=== PATIENT | male | born 1930 | race Caucasian/White ===

== ENCOUNTER 2018-07-24 14:52 | Observation (INO) ==
--- NOTE | 2018-07-24 15:10 | Emergency Department Note ---
Disposition Clinical Impression: Confusion UTI (urinary tract infection) Qualifiers: Urinary tract infection type: site unspecified Hematuria presence: without hematuria Qualified Code(s): N39.0 - Urinary tract infection, site not specified CHF (congestive heart failure) Qualifiers: Heart failure type: unspecified Heart failure chronicity: unspecified Qualified Code(s): I50.9 - Heart failure, unspecified Hypothyroidism Qualifiers: Hypothyroidism type: unspecified Qualified Code(s): E03.9 - Hypothyroidism, unspecified Atrial fibrillation Qualifiers: Atrial fibrillation type: unspecified Qualified Code(s): I48.91 - Unspecified atrial fibrillation Disposition: Admitted As Inpatient Condition: Good Referrals: Wander Sandoval MD [Primary Care Provider] - Forms: ED Satisfaction Letter General Adult HPI - General Chief complaint: ED Altered Mental Status Stated complaint: AMS Time Seen by Provider: 07/24/18 14:56 Source: EMS Limitations: no limitations Nursing Notes Reviewed: Yes Vital Signs Reviewed: Yes - History of Present Illness HPI Narrative: Patient with previous cardiac history but history otherwise limited as he presents with EMS from home with no family present. Patient states that he has felt "punky" for the last several days. Report from EMS states that family states he has been confused. Confusion seems to be intermittent and they are concerned about medications. Do not have a current medication list at this time. The patient states that he has had the symptoms for the last 2 days. His only positive review of systems was decreased urination. He on physical exam has findings of lower extremity pitting edema +1 up through the lower calf. We will further discuss patient's condition once family arrives. Initial workup ordered. Pain Scale: 0 - Related Data Home Medications Medication Instructions Recorded Confirmed Aspirin 81 mg PO QPM 06/23/15 08/30/16 Clopidogrel [Plavix] 75 mg PO QAM 06/23/15 08/30/16 Finasteride [Proscar] 5 mg PO QPM 06/23/15 08/30/16 Levothyroxine [Synthroid] 75 mcg PO QAM 06/23/15 08/30/16 Nitroglycerin 0.4 mg SL Q5MIN 06/23/15 08/30/16 Pravastatin Sodium [Pravachol] 80 mg PO QPM 06/23/15 08/30/16 Silodosin [Rapaflo] 8 mg PO QPM 06/23/15 08/30/16 metFORMIN [Glucophage] 1,000 mg PO BID 06/23/15 08/30/16 Previous Rx's Medication Instructions Recorded Carvedilol [Coreg] 12.5 mg PO BID #60 tablet 09/04/16 Cefdinir [Omnicef] 300 mg PO Q12H #8 capsule 09/04/16 Furosemide [Lasix] 40 mg PO BID #60 tab 09/04/16 Lisinopril [Zestril] 2.5 mg PO DAILY #30 tablet 09/04/16 Omeprazole [PriLOSEC] 20 mg PO DAILY@0630 #30 capsule. 09/04/16 Rivaroxaban [Xarelto] 20 mg PO 1700 #30 tablet 09/04/16 Sennosides/Docusate Sodium [Senna 1 each PO HS #30 tablet 09/04/16 Plus] Allergies Allergy/AdvReac Type Severity Reaction Status Date / Time No Known Allergies Allergy Verified 08/30/16 14:18 Review of Systems: CONSTITUTIONAL: "Punky" No weight loss, fever, chills HEENT: Eyes: No visual changes. Ears, Nose, Throat: No hearing loss, difficulty talking or unable to swallow. SKIN: No rash or itching. CARDIOVASCULAR: No chest pain, chest pressure or chest discomfort. No palpitations or edema. RESPIRATORY: No shortness of breath, cough or sputum. GASTROINTESTINAL: No anorexia, nausea, vomiting or diarrhea. No abdominal pain or blood. GENITOURINARY: Decreased urination NEUROLOGICAL: No headache, dizziness, syncope, paralysis, ataxia, numbness or tingling in the extremities. No change in bowel or bladder control. MUSCULOSKELETAL: No muscle pain, back pain, joint pain or stiffness. Past Medical History - Past Medical History Medical history: Reports: coronary artery disease, diabetes, hyperlipidemia, hypertension, myocardial infarction, TIA Surgical history: Reports: angioplasty/stent, cholecystectomy, coronary bypass ( CABG), herniorrhaphy, pacemaker/AICD Psychiatric history: Reports: no psych history - Social History Smoking Status: Former smoker Smokeless Tobacco Status: No Alcohol use: Reports: none Drug use: Reports: none Physical Exam General: Well appearing, nontoxic, no acute distress Head: Normocephalic Atraumatic Eyes: PERRL, EOMI ENT: Airway patent, no stridor Neck: supple, no meningismus Chest: Lungs clear to auscultation bilateral Cardiac: Irregular rate and rhythm Abdomen: soft, nontender, nondistended; no guarding, rebound, or tenderness to percussion Musculoskeletal: Calves symmetric, nontender, +1 pitting edema to the lower extremities Skin: Midline sternotomy scar as well as scar to the left lower leg from likely bypass surgery. No rash, normal skin tone Neuro: Alert and Oriented to person, place, but states the date is 08; No focal deficit, CN 2-12 symmetric and intact - General Limitations: no limitations General appearance: alert, in no apparent distress Course - Reevaluation(s) Reevaluation #1: Family is at bedside. They have medication list. Patient no longer taking digoxin. Patient's Lasix was changed to 80 mg in the morning. The patient has been found more confused and it appears that he has not taken his medications for 2 days. Patient's laboratory evaluation shows concern for effusion versus pneumonia versus atelectasis in the left lower base. Patient has not had any symptoms of chest pain or shortness of breath or orthopnea. Atelectasis versus fluid overload as he has a mildly elevated BNP and lower extremity pitting edema is more likely. The patient's TSH is slightly elevated which may be explained from medication noncompliance. The patient's urine was found to be mucoid in nature. Lab was called as urinalysis was not performed but microscopy was. They state that his urine was too thick to run on the machine. The urinalysis shows many bacteria. Basic this does not happen often but more frequently from halfway patients with kidney dysfunction. At this time due to the bacteria in the urine urine will be cultured the patient will be treated empirically for UTI. This is consistent with patient's only symptom of decreased urine output. Would also explain why he is confused and not taking his medications which medication noncompliance likely explaining his other lab abnormalities and physical exam findings. Case will be discussed with the hospitalist and the patient be admitted for further evaluation and treatment. - Consultations Consultation #1: Discussed with hospitalist. Patient accepted for admission Vital Signs Temperature 98.5 F 07/24/18 14:56 Pulse Rate 100 07/24/18 14:56 Respiratory Rate 18 07/24/18 14:56 Blood Pressure 147/93 07/24/18 14:56 O2 Sat by Pulse Oximetry 97 07/24/18 14:56 Temperature 98.5 F 07/24/18 14:56 Pulse Rate 100 07/24/18 14:56 Respiratory Rate 18 07/24/18 14:56 Blood Pressure 147/93 07/24/18 14:56 O2 Sat by Pulse Oximetry 97 07/24/18 14:56 Oxygen Delivery Oxygen Delivery Room Air Medical Decision Making - Lab Data Result diagrams: 07/24/18 15:05 07/24/18 15:05 Lab Results 07/24/18 07/24/18 07/24/18 Range/Units 15:05 15:05 15:05 WBC 6.7 (4.3-11.1) K/mcL RBC 3.92 L (4.19-5.50) M/mcL Hgb 12.6 L (12.9-16.9) g/dL Hct 37.8 (37.5-50.1) % MCV 96.4 (83.0-100.0) fL MCH 32.1 (28.0-33.3) pg MCHC 33.3 (31.6-35.5) g/dL RDW 14.3 (11.5-14.5) % Plt Count 122 L (140-400) K/mcL MPV 9.9 (9.4-12.4) fL Immature Gran % 0.3 (0-4) % Seg Neutrophils % 74.8 % Lymphocytes % 12.1 % Monocytes % 9.4 % Eosinophils % 2.7 % Basophils % 0.7 % Neutrophils # 5.0 (1.6-8.9) K/mcL Lymphocytes # 0.8 (0.6-4.6) K/mcL Monocytes # 0.6 (0.0-1.3) K/mcL Eosinophils # 0.2 (0.0-0.6) K/mcL Basophils # 0.1 (0.0-0.2) K/mcL PT 15.2 H (9.4-12.1) Seconds INR 1.4 Sodium 140 (136-145) mEq/L Potassium 4.1 (3.5-5.1) mEq/L Chloride 107 (98-107) mEq/L Carbon Dioxide 24 (23-29) mEq/L BUN 31 H (8-23) mg/dL Creatinine 1.15 (0.70-1.30) mg/dL Est GFR ( Amer) > 60 (> 60) Est GFR (Non-Af Amer) > 60 (> 60) BUN/Creatinine Ratio 27 H (6-26) Glucose 156 H (70-105) mg/dL Calculated Osmolality 300 (280-300) Calcium 10.1 (8.6-10.3) mg/dL Total Bilirubin 1.3 H (0.3-1.0) mg/dL Direct Bilirubin 0.4 H (0.0-0.2) mg/dL Indirect Bilirubin 0.9 (0.0-1.2) mg/dL AST 32 (13-39) Units/L ALT 27 (7-52) Units/L Alkaline Phosphatase 132 H (34-104) Units/L Troponin I < 0.03 (< 0.04) ng/mL B-Natriuretic Peptide (Less than 100) pg/mL Serum Total Protein 6.6 (6.4-8.9) g/dL Albumin 4.4 (3.5-5.7) g/dL Globulin 2.2 L (2.4-3.5) g/dL Albumin/Globulin Ratio 2.0 (1.1-2.2) TSH 7.127 H (0.340-5.600) mcIU/mL Ur Specimen Adequacy Urine Color (Yellow) Urine Clarity (Clear) Urine Microscopic RBC (0-3) per hpf Urine Microscopic WBC (0-3) per hpf Urine Bacteria (None-Few) per hpf Urine Mucus (Few) Ur Culture Indicated? (NO) 07/24/18 07/24/18 Range/Units 15:06 16:00 WBC (4.3-11.1) K/mcL RBC (4.19-5.50) M/mcL Hgb (12.9-16.9) g/dL Hct (37.5-50.1) % MCV (83.0-100.0) fL MCH (28.0-33.3) pg MCHC (31.6-35.5) g/dL RDW (11.5-14.5) % Plt Count (140-400) K/mcL MPV (9.4-12.4) fL Immature Gran % (0-4) % Seg Neutrophils % % Lymphocytes % % Monocytes % % Eosinophils % % Basophils % % Neutrophils # (1.6-8.9) K/mcL Lymphocytes # (0.6-4.6) K/mcL Monocytes # (0.0-1.3) K/mcL Eosinophils # (0.0-0.6) K/mcL Basophils # (0.0-0.2) K/mcL PT (9.4-12.1) Seconds INR Sodium (136-145) mEq/L Potassium (3.5-5.1) mEq/L Chloride (98-107) mEq/L Carbon Dioxide (23-29) mEq/L BUN (8-23) mg/dL Creatinine (0.70-1.30) mg/dL Est GFR ( Amer) (> 60) Est GFR (Non-Af Amer) (> 60) BUN/Creatinine Ratio (6-26) Glucose (70-105) mg/dL Calculated Osmolality (280-300) Calcium (8.6-10.3) mg/dL Total Bilirubin (0.3-1.0) mg/dL Direct Bilirubin (0.0-0.2) mg/dL Indirect Bilirubin (0.0-1.2) mg/dL AST (13-39) Units/L ALT (7-52) Units/L Alkaline Phosphatase (34-104) Units/L Troponin I (< 0.04) ng/mL B-Natriuretic Peptide 338 H (Less than 100) pg/mL Serum Total Protein (6.4-8.9) g/dL Albumin (3.5-5.7) g/dL Globulin (2.4-3.5) g/dL Albumin/Globulin Ratio (1.1-2.2) TSH (0.340-5.600) mcIU/mL Ur Specimen Adequacy Mucoid Specimen A Urine Color Yellow (Yellow) Urine Clarity Clear (Clear) Urine Microscopic RBC 0-3 (0-3) per hpf Urine Microscopic WBC 5-15 H (0-3) per hpf Urine Bacteria Moderate H (None-Few) per hpf Urine Mucus Moderate H (Few) Ur Culture Indicated? NO (NO) - EKG Data EKG #1 EKG attestation: Yes I reviewed and interpreted this EKG. EKG results narrative: Muller EKG at 1458 atrial fibrillation with a heart rate of 108. QRS 117. QTC 416. Patient has no significant elevations or depressions. EKG unchanged from 08/30/16.
[2018-07-24 15:24] LABS: Basophils # 0.1 K/mcL (0.0-0.2); Basophils % 0.7 %; Eosinophils # 0.2 K/mcL (0.0-0.6); Eosinophils % 2.7 %; Hematocrit 37.8 % (37.5-50.1); Hemoglobin 12.6 g/dL (12.9-16.9); Immature Granulocytes % 0.3 % (0-4); Lymphocytes # 0.8 K/mcL (0.6-4.6); Lymphocytes % 12.1 %; Mean Corpuscular HGB Conc 33.3 g/dL (31.6-35.5); Mean Corpuscular Hemoglobin 32.1 pg (28.0-33.3); Mean Corpuscular Volume 96.4 fL (83.0-100.0); Mean Platelet Volume 9.9 fL (9.4-12.4); Monocytes # 0.6 K/mcL (0.0-1.3); Monocytes % 9.4 %; Platelet Count 122 K/mcL (140-400); Red Blood Count 3.92 M/mcL (4.19-5.50); Red Cell Distribution Width 14.3 % (11.5-14.5); Segmented Neutrophils % 74.8 %
[2018-07-24 15:31] LABS: INR 1.4; Prothrombin Time 15.2 Seconds (9.4-12.1)
[2018-07-24 15:50] LABS: Troponin I < 0.03 ng/mL (< 0.04)
[2018-07-24 15:51] LABS: Alanine Aminotransferase 27 Units/L (7-52); Albumin 4.4 g/dL (3.5-5.7); Alkaline Phosphatase 132 Units/L (34-104); Aspartate Amino Transferase 32 Units/L (13-39); BUN/Creatinine Ratio 27 (6-26); Bilirubin,Direct 0.4 mg/dL (0.0-0.2); Bilirubin,Indirect 0.9 mg/dL (0.0-1.2); Bilirubin,Total 1.3 mg/dL (0.3-1.0); Blood Urea Nitrogen 31 mg/dL (8-23); Calcium 10.1 mg/dL (8.6-10.3); Carbon Dioxide 24 mEq/L (23-29); Chloride 107 mEq/L (98-107); Globulin 2.2 g/dL (2.4-3.5); Glucose 156 mg/dL (70-105); Osmolality,Calculated 300 (280-300); Potassium 4.1 mEq/L (3.5-5.1); Sodium 140 mEq/L (136-145); Total Protein 6.6 g/dL (6.4-8.9); eGFR For Non-African Americans > 60 (> 60)
[2018-07-24 16:04] LABS: Thyroid Stimulating Hormone 7.127 mcIU/mL (0.340-5.600)
[2018-07-24 16:24] LABS: Clarity,Urine Clear (Clear); Color,Urine Yellow (Yellow); Urine Specimen Comments Mucoid Specimen
[2018-07-24 16:26] LABS: Bacteria,Urine Moderate per hpf (None-Few)
[2018-07-24 16:27] LABS: Mucus,Urine Moderate (Few); RBC,Urine 0-3 per hpf (0-3)
[2018-07-24] MEDS ORDERED: 0.9 % Sodium Chloride 500 ML IVC ONE (16:42)
[2018-07-24] MEDS ORDERED: cefTRIAXone 1,000 MG in Water for inj. (sterile) 20 ML 10 ML IVP ONE (16:42)
[2018-07-24] MEDS ORDERED: Furosemide 40 MG/4 ML VIAL IVP ONE (16:42)
[2018-07-24] MEDS ORDERED: Naloxone 0.4 MG/ML INJ IVP PRN (17:14)
[2018-07-24] MEDS ORDERED: *HR* Dextrose 50 % in Water (Syg) 50 ML SYRINGE IVP PRN (17:16)
[2018-07-24] MEDS ORDERED: D5% in Water 1,000 ML IVC PRN (17:16)
[2018-07-24] MEDS ORDERED: Dextrose Gel 15 GM/37.5 ML TUBE PO PRN ×2 (17:16)
--- NOTE | 2018-07-24 17:52 | Internal Med History&Physical ---
Date of Encounter: 07/25/18 Time of Encounter: 17:49 Internal Medicine - H&P: HPI Chief complaint: Confusion Admitted From: Home Plans for Post Hospital Care: Home History of present illness: Mr. Muller is a 88 year old male with medical history of hypothyroidism, atrial fibrillation, systolic heart failure, BPH, diabetes mellitus. The patient presents complaining of his children to the emergency room. History obtained from the family reports that he saw the patient at home today and he was not in his usual state of mind. Patient usually wakes up every day and document his blood pressure, his heart rate and his blood sugar, however when his son go to the patient's house this morning, he was confused, he was wearing his shoes the wrong way, and he was disoriented. The patient himself is able to give a history and she complains of not taking his medications for the past 2 days. He denies chest pain, he denies shortness of breath, he denies orthopnea, he denies nausea, vomiting or diarrhea. He endorsed dysuria and frequency. He reports increasing ankle swelling. He reports missing his medications for the past 2 days, at the time of review, he is alert and oriented 3. These has no speech deficits, he has no facial paralysis, his gait is normal Workup in the emergency room revealed that due to urinalysis, chest x-ray shows mild pulmonary vascular congestion without overt pulmonary edema. Head CT did not show any infarct. His vitals are currently stable. Family reports that the patient has been taking off r xarelto for Afib due to anemia from blood loss. Endoscopy in the chart done 2017 shows no hemorrhage. He is DNR/DNI Past Med Surg Social Fam HX - Past Medical History Medical history: coronary artery disease, diabetes, hyperlipidemia, hypertension , myocardial infarction, TIA Psychiatric history: no psych history - Past Surgical History Surgical History: angioplasty/stent, cholecystectomy, coronary bypass (CABG), herniorrhaphy, pacemaker/AICD - Social History Smoking Status: Former smoker Smokeless Tobacco Status: No Alcohol use: none Drug use: none - Family History Father Adopted: No Living Status: Hx Family Cardiac Disorders: Yes (heart attack) Mother Hx Family Endocrine Disorder: Yes (Diabetes) Internal Medicine - H&P: Meds Pravastatin Sodium [Pravachol] 80 mg PO QPM 06/23/15 [History] Carvedilol [Coreg] 12.5 mg PO BID #60 tablet 09/04/16 [Rx] Lisinopril [Zestril] 2.5 mg PO DAILY #30 tablet 09/04/16 [Rx] Omeprazole [PriLOSEC] 20 mg PO DAILY@0630 #30 capsule. 09/04/16 [Rx] Clopidogrel [Plavix] 75 mg PO QAM 07/24/18 [History] Ferrous Sulfate [Iron] 325 mg PO BID 07/24/18 [History] Finasteride [Proscar] 5 mg PO DAILY 07/24/18 [History] Furosemide [Lasix] 80 mg PO BID 07/24/18 [History] Glimepiride [Amaryl] 1 mg PO DAILY 07/24/18 [History] Levothyroxine [Synthroid] 75 mcg PO QAM 07/24/18 [History] Metformin HCl [Metformin HCl] 1,000 mg PO BID 07/24/18 [History] Nitroglycerin [Nitrostat] 0.4 mg SL AD PRN 07/24/18 [History] Silodosin [Rapaflo] 8 mg PO QPM 07/24/18 [History] Vitamin B Complex [B Complex] 1 each PO QPM 07/24/18 [History] 3 Allergy/AdvReac Type Severity Reaction Status Date / Time No Known Allergies Allergy Verified 07/24/18 21:53 All Systems PM: A 10-system review of systems was performed and is negative for pertinent findings except as documented above in the HPI. - Constitutional Constitutional: as per HPI - EENT Eyes: as per HPI Ears: as per HPI Nose, mouth and throat: as per HPI - Cardiovascular Cardiovascular ROS IM: as per HPI - Respiratory Respiratory: as per HPI - Gastrointestinal Gastrointestinal: as per HPI - Musculoskeletal Musculoskeletal ROS IM: as per HPI - Integumentary Integumentary IM: as per HPI - Neurological Neurological ROS: as per HPI - Hematologic/Lymphatic Hematologic/Lymphatic: as per HPI - Constitutional Vitals: Temp Pulse Resp BP Pulse Ox 98.5 F 87 16 130/89 98 07/24/18 14:56 07/24/18 17:19 07/24/18 17:19 07/24/18 17:19 07/24/18 17:19 General appearance: Present: A&O X 3, pleasant, no acute distress Exam: see below - Head Head exam: Present: atraumatic, normocephalic - Eye Eye exam: Present: PERRL, conjuntiva pink, sclera anicteric Pupils: Present: PERRL - Neck Neck exam general surgery: Present: supple, trachea midline. Absent: lymphadenopathy - Respiratory Respiratory exam: Present: CTAB. Absent: accessory muscle use, rales, rhonchi, wheezes - Cardiovascular Cardiovascular exam: Present: RRR, +S1, +S2. Absent: diastolic murmur, gallop, rubs, systolic murmur - GI/Abdominal GI/Abdominal exam: Present: normal bowel sounds, soft, no peritoneal signs. Absent: distended, tenderness - Extremities Exam Extremities exam: Present: pedal edema (Trace bilateral pitting ankle edema), warm, radial pulses palpable and symmetrical. Absent: calf tenderness, cyanotic - Neurological Exam Neurological exam: Present: alert, CN II-XII intact, oriented X3, no focal deficits. Absent: pronater drift, facial droop, speech deficit - Skin Skin exam: Present: dry (Bruising), intact Internal Med - H&P Results - Labs CBC & Chem 7: 07/24/18 15:05 07/25/18 03:25 Labs: Short CBC 07/24/18 Range/Units 15:05 WBC 6.7 (4.3-11.1) K/mcL Hgb 12.6 L (12.9-16.9) g/dL Hct 37.8 (37.5-50.1) % Plt Count 122 L (140-400) K/mcL Neutrophils # 5.0 (1.6-8.9) K/mcL BMP 07/24/18 15:05 Sodium 140 Potassium 4.1 Chloride 107 Carbon Dioxide 24 BUN 31 H Creatinine 1.15 Glucose 156 H Calcium 10.1 Cardiac Enzymes 07/24/18 Range/Units 15:05 Troponin I < 0.03 (< 0.04) ng/mL Liver Function 07/24/18 Range/Units 15:05 Total Bilirubin 1.3 H (0.3-1.0) mg/dL Direct Bilirubin 0.4 H (0.0-0.2) mg/dL AST 32 (13-39) Units/L ALT 27 (7-52) Units/L Alkaline Phosphatase 132 H (34-104) Units/L Albumin 4.4 (3.5-5.7) g/dL Urine 07/24/18 Range/Units 16:00 Urine Color Yellow (Yellow) Urine Clarity Clear (Clear) - Impressions ITS Impressions Chest X-Ray 07/24/18 15:05 IMPRESSION: 1. Left pleural effusion and underlying left basilar airspace opacity that could represent atelectasis, pneumonia, or aspiration. 2. Pulmonary vascular congestion with questionable perihilar edema. D/ / Jerry Carey MD / Jerry Carey MD Interpreting Provider: Jerry Carey MD Head CT 07/24/18 15:12 IMPRESSION: No acute intracranial abnormality. 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 D/ / 07/24/2018 16:01:32 Daniel Rangel MD [facility] Interpreting Provider: Daniel Rangel MD - Assessment and plan (1) Encephalopathy Current Visit: Yes Status: Acute Assessment and plan: Patient presented with confusion as stated by family, at time will review is oriented to time (he knows its 2018), place and person Head CT unremarkable Seems to have resolved No neurologic deficits and gait is normal Continue to monitor Fall precautions (2) CHF (congestive heart failure) Current Visit: Yes Status: Chronic Assessment and plan: Patient with known systolic CHF ejection fraction 40%. Noncompliant with Lasix in the past 2 days. Chest x-ray with pulmonary vascular congestion, no pulmonary edema, patient is not tachypneic or hypoxic. Continue Lasix at home dose, give IV daily for now, till home meds confirmed Strict I and Os Daily weight 1500cc fluid restriction Qualifiers: Heart failure type: systolic Heart failure chronicity: chronic Qualified Code(s): I50.22 - Chronic systolic (congestive) heart failure (3) UTI (urinary tract infection) Current Visit: Yes Status: Suspected Assessment and plan: Suspected, symptomatic UA noted-pyuria NO fever or leukocytosis Follow final culture Continue Rocephin 1g daily Qualifiers: Urinary tract infection type: site unspecified Hematuria presence: without hematuria Qualified Code(s): N39.0 - Urinary tract infection, site not specified (4) Atrial fibrillation Current Visit: Yes Status: Chronic Assessment and plan: HR controlled Not on anticoagulation due to history of anemia with xarelto Aspirin and Plavix Only, Continue the Same. Heart Rate Is Controlled on Current Beta Liv, Continue the Same. Qualifiers: Atrial fibrillation type: unspecified Qualified Code(s): I48.91 - Unspecified atrial fibrillation (5) Hypothyroidism Current Visit: Yes Status: Chronic Assessment and plan: Uncontrolled Compliance is questionable TSH 7.127 Continue home dose of synthroid Continue to monitor Qualifiers: Hypothyroidism type: unspecified Qualified Code(s): E03.9 - Hypothyroidism , unspecified (6) BPH (benign prostatic hyperplasia) Current Visit: Yes Status: Chronic Assessment and plan: continue home meds Qualifiers: Lower urinary tract symptom presence: unspecified whether lower urinary tract symptoms present Qualified Code(s): N40.0 - Benign prostatic hyperplasia without lower urinary tract symptoms (7) CAD (coronary artery disease) Current Visit: Yes Status: Chronic Assessment and plan: continue home BB, ACEI, ASA, Plavix, Lasix No CP EKG is unremarkable Qualifiers: Coronary Disease-Associated Artery/Lesion type: [place] artery [place] vs. transplanted heart: [place] heart Associated angina: without angina Qualified Code(s): I25.10 - Atherosclerotic heart disease of [place] coronary artery without angina pectoris (8) Diabetes Current Visit: Yes Status: Chronic Assessment and plan: SSI FS ACHS ADA diet Qualifiers: Diabetes mellitus type: type 2 Diabetes mellitus termite technician insulin use: without termite technician use Diabetes mellitus complication status: without complication Qualified Code(s): E11.9 - Type 2 diabetes mellitus without complications - Time Spent With Patient Total time spent is greater than 50% in coordination of care (as documented) at patient's floor/unit and/or counseling patient:
[2018-07-24] MEDS: Finasteride 5 MG TABLET PO SCH (18:42)
[2018-07-24] MEDS: Insulin LISPRO 300 UNITS/3 ML VIAL SQ SCH (20:45)
[2018-07-25 05:05] LABS: Alanine Aminotransferase 25 Units/L (7-52); Albumin 3.6 g/dL (3.5-5.7); Albumin/Globulin Ratio 1.6 (1.1-2.2); Alkaline Phosphatase 101 Units/L (34-104); Aspartate Amino Transferase 28 Units/L (13-39); BUN/Creatinine Ratio 25 (6-26); Bilirubin,Total 1.1 mg/dL (0.3-1.0); Blood Urea Nitrogen 26 mg/dL (8-23); Calcium 9.4 mg/dL (8.6-10.3); Carbon Dioxide 28 mEq/L (23-29); Chloride 106 mEq/L (98-107); Globulin 2.2 g/dL (2.4-3.5); Glucose 123 mg/dL (70-105); Osmolality,Calculated 298 (280-300); Potassium 3.6 mEq/L (3.5-5.1); Sodium 141 mEq/L (136-145); Total Protein 5.8 g/dL (6.4-8.9); eGFR For Non-African Americans > 60 (> 60)
[2018-07-25] MEDS: Insulin LISPRO 300 UNITS/3 ML VIAL SQ SCH ×3 (08:09→17:07)
[2018-07-25] MEDS: cefTRIAXone 1,000 MG in Water for inj. (sterile) 20 ML 10 ML IVP SCH (08:42)
[2018-07-25] MEDS ORDERED: Furosemide 40 MG/4 ML VIAL IVP SCH (09:00)
--- NOTE | 2018-07-25 11:07 | Internal Med Progress Note ---
Hospitalist Progress Note - Encounter Date of Encounter: 07/25/18 Time of Encounter: 11:07 - Subjective Interval History: Patient seen laying flat in bed, has no new complains He remembers this provider 'from yesterday, and from 2 years ago" He is concerned he has not received many of his medications this a.m, chart review shows he has received them He is comfortable - Exam Vitals: Temp Pulse Resp BP Pulse Ox 98.2 F 90 16 100/56 93 07/25/18 08:02 07/25/18 08:02 07/25/18 08:02 07/25/18 08:02 07/25/18 08:02 Exam: Gen.: Vital signs are stable, laying in bed in no form of distress. HEENT: Moist oral mucosa, not cyanotic, sclerae is anicteric, conjunctiva is pink. Neuro: Alert and awake and oriented X2 , disoriented to time, speech is normal, no facial paralysis, no focal weakness. Chest: No bruising, no chest wall tenderness, equal chest movement bilaterally. Respiratory: CTAB Heart: S1, S2, regular rate and rhythm at this time. No murmurs. Abdomen: Obese, nontender, no palpably enlarged organs, bowel sounds present in all quadrants. Extremities: Trace bilateral pitting pedal edema. - Assessment and Plan (1) Encephalopathy Current Visit: Yes Status: Resolved Assessment and Plan: Patient presented with confusion as stated by family, at time of review 07/24, he was oriented X3 This a.m, he is oriented X3, stated its 2008, then changed it to [address] unremarkable Seems to have resolved No neurologic deficits and gait is normal Continue to monitor (2) CHF (congestive heart failure) Current Visit: Yes Status: Chronic Assessment and Plan: Patient with known systolic CHF ejection fraction 40%. Noncompliant with Lasix in the past 2 days. Chest x-ray with pulmonary vascular congestion, no pulmonary edema, patient is not tachypneic or hypoxic. Continue Lasix at home dose, give IV daily for now, till home meds confirmed Strict I and Os Daily weight 1500cc fluid restriction (3) UTI (urinary tract infection) Current Visit: Yes Status: Suspected Assessment and Plan: Suspected, symptomatic UA noted-pyuria NO fever or leukocytosis Follow final culture Continue Rocephin 1g daily (4) Atrial fibrillation Current Visit: Yes Status: Chronic Assessment and Plan: HR controlled Not on anticoagulation due to history of anemia with xarelto He is on Plavix Only, Continue the Same. Heart Rate Is Controlled on Current Beta Liv, Continue the Same. (5) Hypothyroidism Current Visit: Yes Status: Chronic Assessment and Plan: Uncontrolled Compliance is questionable TSH 7.127 Continue home dose of synthroid Continue to monitor (6) BPH (benign prostatic hyperplasia) Current Visit: Yes Status: Chronic Assessment and Plan: continue home meds (7) CAD (coronary artery disease) Current Visit: Yes Status: Chronic Assessment and Plan: continue home BB, ACEI, Plavix, Lasix No CP EKG is unremarkable (8) Diabetes Current Visit: Yes Status: Chronic Assessment and Plan: SSI FS ACHS ADA diet - Time Spent with Patient Total time spent is greater than 50% in coordination of care (as documented) at patient's floor/unit and/or counseling patient: Plan of Care Discussed with: patient Internal Medicine: Result - Labs CBC & Chem 7: 07/24/18 15:05 07/25/18 03:25 Labs: BMP 07/25/18 03:25 Sodium 141 Potassium 3.6 Chloride 106 Carbon Dioxide 28 BUN 26 H Creatinine 1.06 Glucose 123 H Calcium 9.4 Liver Function 07/25/18 Range/Units 03:25 Total Bilirubin 1.1 H (0.3-1.0) mg/dL AST 28 (13-39) Units/L ALT 25 (7-52) Units/L Alkaline Phosphatase 101 (34-104) Units/L Albumin 3.6 (3.5-5.7) g/dL - ABG Interpretation ABG results: PT/INR, D-dimer PT 15.2 Seconds (9.4-12.1) H 07/24/18 15:05 Consult Discharge Plan - Plan Referrals: Wander Sandoval MD [Primary Care Provider] - (Requested a follow up visit in 7- 10 days. ) (2) CHF (congestive heart failure) Qualifiers: Heart failure type: systolic Heart failure chronicity: chronic Qualified Code(s): I50.22 - Chronic systolic (congestive) heart failure (3) UTI (urinary tract infection) Qualifiers: Urinary tract infection type: site unspecified Hematuria presence: without hematuria Qualified Code(s): N39.0 - Urinary tract infection, site not specified (4) Atrial fibrillation Qualifiers: Atrial fibrillation type: unspecified Qualified Code(s): I48.91 - Unspecified atrial fibrillation (5) Hypothyroidism Qualifiers: Hypothyroidism type: unspecified Qualified Code(s): E03.9 - Hypothyroidism, unspecified (6) BPH (benign prostatic hyperplasia) Qualifiers: Lower urinary tract symptom presence: unspecified whether lower urinary tract symptoms present Qualified Code(s): N40.0 - Benign prostatic hyperplasia without lower urinary tract symptoms (7) CAD (coronary artery disease) Qualifiers: Coronary Disease-Associated Artery/Lesion type: [place] artery [place] vs. transplanted heart: [place] heart Associated angina: without angina Qualified Code(s): I25.10 - Atherosclerotic heart disease of [place] coronary artery without angina pectoris (8) Diabetes Qualifiers: Diabetes mellitus type: type 2 Diabetes mellitus escort patients insulin use: without nursing home use Diabetes mellitus complication status: without complication Qualified Code(s): E11.9 - Type 2 diabetes mellitus without complications
[2018-07-25] MEDS: Finasteride 5 MG TABLET PO SCH (17:50)
[2018-07-25] MEDS: Vitamin B Complex/Vit C/Vit E 1 EACH TABLET PO SCH (17:50)
[2018-07-25] MEDS: Furosemide 40 MG/4 ML VIAL IVP SCH (17:50)
[2018-07-25] MEDS: (Silodosin [Rapaflo] 8 MG) PO SCH (17:59)
[2018-07-26] MEDS: Insulin LISPRO 300 UNITS/3 ML VIAL SQ SCH ×5 (00:16→22:01)
[2018-07-26 07:33] LABS: Immature Granulocytes % 0.2 % (0-4)
[2018-07-26 07:35] LABS: Basophils % 0.8 %; Eosinophils # 0.2 K/mcL (0.0-0.6); Eosinophils % 3.8 %; Hematocrit 34.9 % (37.5-50.1); Hemoglobin 11.5 g/dL (12.9-16.9); Immature Platelets 3.3 % (1.1-6.1); Lymphocytes # 0.6 K/mcL (0.6-4.6); Lymphocytes % 12.3 %; Mean Corpuscular Hemoglobin 31.6 pg (28.0-33.3); Mean Corpuscular Volume 95.9 fL (83.0-100.0); Mean Platelet Volume 9.5 fL (9.4-12.4); Monocytes # 0.4 K/mcL (0.0-1.3); Monocytes % 8.7 %; Neutrophils # 3.8 K/mcL (1.6-8.9); Red Blood Count 3.64 M/mcL (4.19-5.50); Red Cell Distribution Width 14.1 % (11.5-14.5); Segmented Neutrophils % 74.2 %
[2018-07-26 07:56] LABS: BUN/Creatinine Ratio 21 (6-26); Blood Urea Nitrogen 23 mg/dL (8-23); Calcium 9.3 mg/dL (8.6-10.3); Carbon Dioxide 27 mEq/L (23-29); Chloride 108 mEq/L (98-107); Glucose 152 mg/dL (70-105); Osmolality,Calculated 303 (280-300); Potassium 3.5 mEq/L (3.5-5.1); Sodium 143 mEq/L (136-145); eGFR For Non-African Americans > 60 (> 60)
[2018-07-26 08:39] LABS: Platelet Count 97 K/mcL (140-400)
[2018-07-26] MEDS: cefTRIAXone 1,000 MG in Water for inj. (sterile) 20 ML 10 ML IVP SCH (09:13)
[2018-07-26] MEDS: Furosemide 40 MG/4 ML VIAL IVP SCH ×2 (09:16→17:32)
[2018-07-26 10:41] LABS: Estimated Average Glucose 134 mg/dl; Hemoglobin A1C 6.3 %
--- NOTE | 2018-07-26 10:59 | Internal Med Progress Note ---
Hospitalist Progress Note - Encounter Date of Encounter: 07/26/18 Time of Encounter: 10:59 - Subjective Interval History: Patient seen laying flat in bed, has no new complains We are awaiting urine culture He has no new complains His repeat CXR shows stable pulm vascular congestion He is able to lay flat and has no O2 requirement Will request PTOT eval - Exam Vitals: Temp Pulse Resp BP Pulse Ox 98.0 F 91 16 131/84 94 07/26/18 08:13 07/26/18 08:13 07/26/18 08:13 07/26/18 08:13 07/26/18 08:13 Exam: Gen.: Vital signs are stable, laying in bed in no form of distress. HEENT: Moist oral mucosa, not cyanotic, sclerae is anicteric, conjunctiva is pink. Neuro: Alert and awake and oriented X2 , disoriented to time, speech is normal, no facial paralysis, no focal weakness. Chest: No bruising, no chest wall tenderness, equal chest movement bilaterally. Respiratory: CTAB Heart: S1, S2, regular rate and rhythm at this time. No murmurs. Abdomen: soft non-tender, no palpably enlarged organs, bowel sounds present in all quadrants. Extremities: no pitting pedal edema. - Assessment and Plan (1) Encephalopathy Current Visit: Yes Status: Resolved Assessment and Plan: Patient presented with confusion as stated by family, at time of review 07/24, he was oriented X3 This a.m, he is oriented X3, stated its 2008, then changed it to [address] unremarkable Seems to have resolved No neurologic deficits and gait is normal Continue to monitor (2) CHF (congestive heart failure) Current Visit: Yes Status: Chronic Assessment and Plan: Patient with known systolic CHF ejection fraction 40%. Noncompliant with Lasix in the past 2 days. Chest x-ray with pulmonary vascular congestion, no pulmonary edema, patient is not tachypneic or hypoxic. Continue Lasix Resume home dose po a.m Repeat CXR stable Strict I and Os Daily weight 1500cc fluid restriction (3) UTI (urinary tract infection) Current Visit: Yes Status: Suspected Assessment and Plan: Suspected, symptomatic UA noted-pyuria NO fever or leukocytosis Follow final culture Continue Rocephin 1g daily (4) Atrial fibrillation Current Visit: Yes Status: Chronic Assessment and Plan: HR controlled Not on anticoagulation due to history of anemia with xarelto He is on Plavix Only, Continue the Same. Heart Rate Is Controlled on Current Beta Liv, Continue the Same. (5) Hypothyroidism Current Visit: Yes Status: Chronic Assessment and Plan: Uncontrolled Compliance is questionable TSH 7.127 Continue home dose of synthroid Continue to monitor (6) BPH (benign prostatic hyperplasia) Current Visit: Yes Status: Chronic Assessment and Plan: continue home meds (7) CAD (coronary artery disease) Current Visit: Yes Status: Chronic Assessment and Plan: continue home BB, ACEI, Plavix, Lasix No CP EKG is unremarkable (8) Diabetes Current Visit: Yes Status: Chronic Assessment and Plan: SSI FS ACHS ADA diet - Time Spent with Patient Total time spent is greater than 50% in coordination of care (as documented) at patient's floor/unit and/or counseling patient: Plan of Care Discussed with: patient Internal Medicine: Result - Labs CBC & Chem 7: 07/26/18 06:44 07/26/18 06:44 Labs: Short CBC 07/26/18 Range/Units 06:44 WBC 5.1 (4.3-11.1) K/mcL Hgb 11.5 L (12.9-16.9) g/dL Hct 34.9 L (37.5-50.1) % Plt Count 97 L (140-400) K/mcL Neutrophils # 3.8 (1.6-8.9) K/mcL BMP 07/26/18 06:44 Sodium 143 Potassium 3.5 Chloride 108 H Carbon Dioxide 27 BUN 23 Creatinine 1.12 Glucose 152 H Calcium 9.3 - ABG Interpretation ABG results: PT/INR, D-dimer PT 15.2 Seconds (9.4-12.1) H 07/24/18 15:05 - Impressions Impressions Chest X-Ray 07/26/18 08:00 IMPRESSION: Pulmonary edema and small left pleural effusion, stable from prior study. D/ / Michael Staley MD / Michael Staley MD Interpreting Provider: Michael Staley MD Consult Discharge Plan - Plan Referrals: Wander Sandoval MD [Primary Care Provider] - (Requested a follow up visit in 7- 10 days. ) (2) CHF (congestive heart failure) Qualifiers: Heart failure type: systolic Heart failure chronicity: chronic Qualified Code(s): I50.22 - Chronic systolic (congestive) heart failure (3) UTI (urinary tract infection) Qualifiers: Urinary tract infection type: site unspecified Hematuria presence: without hematuria Qualified Code(s): N39.0 - Urinary tract infection, site not specified (4) Atrial fibrillation Qualifiers: Atrial fibrillation type: unspecified Qualified Code(s): I48.91 - Unspecified atrial fibrillation (5) Hypothyroidism Qualifiers: Hypothyroidism type: unspecified Qualified Code(s): E03.9 - Hypothyroidism, unspecified (6) BPH (benign prostatic hyperplasia) Qualifiers: Lower urinary tract symptom presence: unspecified whether lower urinary tract symptoms present Qualified Code(s): N40.0 - Benign prostatic hyperplasia without lower urinary tract symptoms (7) CAD (coronary artery disease) Qualifiers: Coronary Disease-Associated Artery/Lesion type: [place] artery [place] vs. transplanted heart: [place] heart Associated angina: without angina Qualified Code(s): I25.10 - Atherosclerotic heart disease of [place] coronary artery without angina pectoris (8) Diabetes Qualifiers: Diabetes mellitus type: type 2 Diabetes mellitus intermediate card tender insulin use: without care home use Diabetes mellitus complication status: without complication Qualified Code(s): E11.9 - Type 2 diabetes mellitus without complications
[2018-07-26] MEDS: (Silodosin [Rapaflo] 8 MG) PO SCH (17:32)
[2018-07-26] MEDS: Finasteride 5 MG TABLET PO SCH (17:32)
[2018-07-26] MEDS: Vitamin B Complex/Vit C/Vit E 1 EACH TABLET PO SCH (18:17)
[2018-07-27] MEDS ORDERED: Furosemide 40 MG TABLET PO SCH (08:00)
[2018-07-27] MEDS: cefTRIAXone 1,000 MG in Water for inj. (sterile) 20 ML 10 ML IVP SCH (08:07)
[2018-07-27] MEDS: Insulin LISPRO 300 UNITS/3 ML VIAL SQ SCH ×2 (08:11→12:22)
--- NOTE | 2018-07-27 10:41 | Discharge Summary ---
Orders not resulted at time of discharge: Pending orders 07/25/18 12:13 Culture,Urine [RM] Stat Date of Encounter: 07/27/18 Time of Encounter: 10:41 - Discharge Diagnosis (1) Encephalopathy Priority: Primary Status: Resolved Assessment and Plan: Patient presented with confusion as stated by family, at time of review 07/24, he was oriented X3 This a.m, he is oriented X3 Head CT unremarkable No neurologic deficits and gait is normal PTOT recommends 24 hr supervision Patient may be having early signs of dementia (2) CHF (congestive heart failure) Priority: Secondary Status: Chronic Assessment and Plan: Patient with known systolic CHF ejection fraction 40%. Noncompliant with Lasix in the past 2 days. Chest x-ray with pulmonary vascular congestion, no pulmonary edema, patient is not tachypneic or hypoxic. Continue Lasix Weight loss documented in-patient, inaccurate output documentation Qualifiers: Heart failure type: systolic Heart failure chronicity: chronic Qualified Code(s): I50.22 - Chronic systolic (congestive) heart failure (3) UTI (urinary tract infection) Priority: Primary Status: Ruled-out Assessment and Plan: ruled out Discontinue antibiotics as urine culture is negative Qualifiers: Urinary tract infection type: site unspecified Hematuria presence: without hematuria Qualified Code(s): N39.0 - Urinary tract infection, site not specified (4) Atrial fibrillation Priority: Secondary Status: Chronic Assessment and Plan: HR controlled Not on anticoagulation due to history of anemia with xarelto He is on Plavix Only, Continue the Same. Qualifiers: Atrial fibrillation type: unspecified Qualified Code(s): I48.91 - Unspecified atrial fibrillation (5) Hypothyroidism Priority: Secondary Status: Chronic Assessment and Plan: Uncontrolled Compliance is questionable TSH 7.127 Continue home dose of synthroid Follow up with PCP for repeat TSH in 3 months Qualifiers: Hypothyroidism type: unspecified Qualified Code(s): E03.9 - Hypothyroidism , unspecified (6) BPH (benign prostatic hyperplasia) Priority: Secondary Status: Chronic Assessment and Plan: continue home meds Qualifiers: Lower urinary tract symptom presence: unspecified whether lower urinary tract symptoms present Qualified Code(s): N40.0 - Benign prostatic hyperplasia without lower urinary tract symptoms (7) CAD (coronary artery disease) Priority: Secondary Status: Chronic Assessment and Plan: continue home BB, ACEI, Plavix, Lasix No CP EKG is unremarkable Qualifiers: Coronary Disease-Associated Artery/Lesion type: [place] artery [place] vs. transplanted heart: [place] heart Associated angina: without angina Qualified Code(s): I25.10 - Atherosclerotic heart disease of [place] coronary artery without angina pectoris (8) Diabetes Priority: Secondary Status: Chronic Assessment and Plan: continue home po meds A1C 6.3, no hypoglycemia, renal function is stable Qualifiers: Diabetes mellitus type: type 2 Diabetes mellitus terminal make up operator insulin use: without terminal make up operator use Diabetes mellitus complication status: without complication Qualified Code(s): E11.9 - Type 2 diabetes mellitus without complications Hospital course: Mr. Muller is a 88 year old male with medical history of hypothyroidism, atrial fibrillation, systolic heart failure, BPH, diabetes mellitus. He presented in completely history and complaining of disorientation, and confusion. According to the family, the patient was found at home and he was not in his usual state of mind. Patient usually wakes up every day and document his blood pressure, his heart rate and his blood sugar, however when his son go to the patient's house on their arrival, he was confused, he was wearing his shoes the wrong way, and he was disoriented. Workup in the emergency room showed 13 urinalysis, chest x-ray showed stable pulmonary vascular congestion without overt pulmonary edema, head CT was unremarkable. TSH was elevated at 7. His vital signs were stable. He was placed on observation for encephalopathy likely secondary to urinary tract infection, home medications were resumed. He was placed on empiric antibiotics and home medications were resumed. The patient was seen and evaluated this morning, he is alert and oriented 3, he is not confused. Urine culture yielded no growth. Physical and occupational therapy were consulted due to family is concerned, patient Jairo 11. PT and OT recommends home health for 24-hour supervision. At this time, there has been no change to patient's home medications, he is ambulatory and conversant, however, he may be developing signs of dementia at this time. Patient's daughter said she is moving in with him and will be with him for a week. She declined home health offered by . See individual diagnoses for more details He is DNR/DNI. Discharged home in stable clinical condition Discharge discussed with: patient, case management - Time Spent with Patient Total time spent providing and/or coordinating discharge services: Less than 30 minutes - Discharge Medications Home Medications: Pravastatin Sodium [Pravachol] 80 mg PO QPM 06/23/15 [History] Carvedilol [Coreg] 12.5 mg PO BID #60 tablet 09/04/16 [Rx] Lisinopril [Zestril] 2.5 mg PO DAILY #30 tablet 09/04/16 [Rx] Omeprazole [PriLOSEC] 20 mg PO DAILY@0630 #30 capsule. 09/04/16 [Rx] Clopidogrel [Plavix] 75 mg PO QAM 07/24/18 [History] Ferrous Sulfate [Iron] 325 mg PO BID 07/24/18 [History] Finasteride [Proscar] 5 mg PO DAILY 07/24/18 [History] Furosemide [Lasix] 80 mg PO BID 07/24/18 [History] Glimepiride [Amaryl] 1 mg PO DAILY 07/24/18 [History] Levothyroxine [Synthroid] 75 mcg PO QAM 07/24/18 [History] Metformin HCl 1,000 mg PO BID 07/24/18 [History] Nitroglycerin [Nitrostat] 0.4 mg SL AD PRN 07/24/18 [History] Silodosin [Rapaflo] 8 mg PO QPM 07/24/18 [History] Vitamin B Complex [B Complex] 1 each PO QPM 07/24/18 [History] Allergies/Adverse Reactions: 3 Allergy/AdvReac Type Severity Reaction Status Date / Time No Known Allergies Allergy Verified 07/24/18 21:53 Date of admission: 07/24/18 17:08 Primary care physician: Wander Sandoval MD Consults: 07/24/18 19:08 Consult to Marketing Writer [CONS] Routine Reason for SW Consult: possible need for home health 07/26/18 12:13 Consult to Occupational Therapy [CONS] Routine Comment: Evaluate, develop and implement POC Reason for Consult: Weakness Does patient have active BEDREST order?: No Is patient medically & hemodynamically stable?: Yes Consult to Physical Therapy [CONS] Routine Comment: Evaluate, develop and implement POC Reason for Consult: Weakness Does patient have active BEDREST order?: No Is patient medically & hemodynamically stable?: Yes Discharging clinician: Gomez Jaeger Anticipated date of discharge: 07/27/18 - Constitutional Vitals: Temp Pulse Resp BP Pulse Ox 98.0 F 88 15 134/87 96 07/27/18 06:33 07/27/18 06:33 07/27/18 06:33 07/27/18 06:07/27/18 06:33 General appearance: Present: A&O X 3, pleasant, no acute distress Exam: see below - Head Head exam: Present: atraumatic, normocephalic - Eye Eye exam: Present: PERRL, conjuntiva pink, sclera anicteric Pupils: Present: PERRL - Neck Neck exam general surgery: Present: supple, trachea midline. Absent: lymphadenopathy - Respiratory Respiratory exam: Present: CTAB. Absent: accessory muscle use, rales, rhonchi, wheezes - Cardiovascular Cardiovascular exam: Present: RRR, +S1, +S2. Absent: diastolic murmur, gallop, rubs, systolic murmur - GI/Abdominal GI/Abdominal exam: Present: normal bowel sounds, soft, no peritoneal signs. Absent: distended, tenderness - Extremities Exam Extremities exam: Present: warm, radial pulses palpable and symmetrical. Absent : calf tenderness, cyanotic, pedal edema - Neurological Exam Neurological exam: Present: CN II-XII intact, oriented X3, no focal deficits. Absent: pronater drift, facial droop, speech deficit - Skin Skin exam: Present: dry, intact - Patient Status Disposition: Home Health Service Condition: Good Functional capacity at discharge: independent ambulation Overall status at discharge: patient is progressing back to baseline - Discharge Instructions Follow Up With: Wander Sandoval MD [Primary Care Provider] - (Requested a follow up visit in 7- 10 days. ) - Diet and Activity Activity: resume usual activities as tolerated Diet: low fat, low cholesterol, low salt diet
--- NOTE | 2018-07-27 11:21 | Physician Discharge Referral ---
Home Health/Hosp Referral Info Transfer to: Home Health Attending Provider: Booker Jaeger Provider in Charge Post Discharge: PCP - Diagnosis (1) Encephalopathy Status: Resolved (2) CHF (congestive heart failure) Status: Chronic (3) UTI (urinary tract infection) Status: Suspected (4) Atrial fibrillation Status: Chronic (5) Hypothyroidism Status: Chronic (6) BPH (benign prostatic hyperplasia) Status: Chronic (7) CAD (coronary artery disease) Status: Chronic (8) Diabetes Status: Chronic - Respiratory Orders Smoking Cessation: Smoking cessation has been advised. For more information, call the [place] Tobacco Quit Line at 2-652-VJVB-NOW. - Transfer Medications Home Medications: Pravastatin Sodium [Pravachol] 80 mg PO QPM 06/23/15 [History] Carvedilol [Coreg] 12.5 mg PO BID #60 tablet 09/04/16 [Rx] Lisinopril [Zestril] 2.5 mg PO DAILY #30 tablet 09/04/16 [Rx] Omeprazole [PriLOSEC] 20 mg PO DAILY@0630 #30 capsule. 09/04/16 [Rx] Clopidogrel [Plavix] 75 mg PO QAM 07/24/18 [History] Ferrous Sulfate [Iron] 325 mg PO BID 07/24/18 [History] Finasteride [Proscar] 5 mg PO DAILY 07/24/18 [History] Furosemide [Lasix] 80 mg PO BID 07/24/18 [History] Glimepiride [Amaryl] 1 mg PO DAILY 07/24/18 [History] Levothyroxine [Synthroid] 75 mcg PO QAM 07/24/18 [History] Metformin HCl [Metformin HCl] 1,000 mg PO BID 07/24/18 [History] Nitroglycerin [Nitrostat] 0.4 mg SL AD PRN 07/24/18 [History] Silodosin [Rapaflo] 8 mg PO QPM 07/24/18 [History] Vitamin B Complex [B Complex] 1 each PO QPM 07/24/18 [History] Allergies/Adverse Reactions: 3 Allergy/AdvReac Type Severity Reaction Status Date / Time No Known Allergies Allergy Verified 07/24/18 21:53 Certification: Further, I certify that my clinical findings support that this patient is homebound (i.e. absences from home require considerable and taxing effort and are for medical reasons or mandaen services or infrequently or short duration when for other reasons) because: Attestation: My signature below is to certify that this patient is under my care and that I, or nurse practitioner, or a physician's blood bank assistant working with me, has a face-to -face encounter with this patient.
[2018-07-27 11:36] VITALS: BP 124/78
--- NOTE | 2018-07-27 17:57 | Electrocardiograph Report ---
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
== END 2018-07-27 19:42 | disposition home or self-care (01) ==
LOC: 3BNU 14:52 → EMEROOARM 14:52 → SUATTDRO 17:08 → 3BNU 18:34 → UNDODISOB 07-27 16:53
PROVIDERS: ADMIT Internal Medicine; ATTEND Internal Medicine

== ENCOUNTER 2019-07-27 09:17 | Observation (INO) ==
--- NOTE | 2019-07-27 09:26 | Emergency Department Note ---
Disposition Clinical Impression: Cerebrovascular disease, Weakness, Frail elderly, History of hypertension, History of hyperlipidemia CAD (coronary artery disease) Qualifiers: Coronary Disease-Associated Artery/Lesion type: [place] artery [place] vs. transplanted heart: [place] heart Associated angina: without angina Qualified Code(s): I25.10 - Atherosclerotic heart disease of [place] coronary artery without angina pectoris Diabetes Qualifiers: Diabetes mellitus type: type 2 Diabetes mellitus assisted insulin use: without program instructor use Diabetes mellitus complication status: without complication Qual ified Code(s): E11.9 - Type 2 diabetes mellitus without complications Atrial fibrillation Qualifiers: Atrial fibrillation type: unspecified Qualified Code(s): I48.91 - Unspecified atrial fibrillation Disposition: Admitted As Inpatient Time of Disposition: 14:39 General Adult HPI - General Chief complaint: ED General Medical Stated complaint: dizzy Time Seen by Provider: 07/27/19 09:21 - History of Present Illness HPI Narrative: 89-year-old male brought in by family members with concern regarding generalized weakness. The patient's daughter checked on him this morning when she heard some noise coming from the bathroom, the patient was sitting on the toilet and attempting to get up and was unable to stand normally. He felt weak and dizzy. There is no history of slurred speech facial drooping unilateral arm or leg weakness or numbness or fall. The patient denies any chest pain shortness of breah or abdominal pain. No acute back pain. No vomiting diarrhea fever confusion or convulsion. The patient is known to be diabetic. The patient's was doing well last night and had a good meal per his family. They state he has felt generally weak which began this morning. No fever or headache or rash reported. No urinary symptoms noted. - Related Data Home Medications Medication Instructions Recorded Confirmed Pravastatin Sodium [Pravachol] 80 mg PO QPM 06/23/15 07/27/19 Clopidogrel [Plavix] 75 mg PO QAM 07/24/18 07/27/19 Ferrous Sulfate [Iron] 325 mg PO BID 07/24/18 07/27/19 Finasteride [Proscar] 5 mg PO DAILY 07/24/18 07/27/19 Furosemide [Lasix] 80 mg PO BID 07/24/18 07/27/19 Glimepiride [Amaryl] 1 mg PO DAILY 07/24/18 07/27/19 Levothyroxine [Synthroid] 75 mcg PO QAM 07/24/18 07/27/19 Metformin HCl 1,000 mg PO BID 07/24/18 07/27/19 Nitroglycerin [Nitrostat] 0.4 mg SL AD PRN 07/24/18 07/27/19 Silodosin [Rapaflo] 8 mg PO QPM 07/24/18 07/27/19 Vitamin B Complex [B Complex] 1 each PO QPM 07/24/18 07/27/19 Previous Rx's Medication Instructions Recorded Carvedilol [Coreg] 12.5 mg PO BID #60 tablet 09/04/16 Lisinopril [Zestril] 2.5 mg PO DAILY #30 tablet 09/04/16 Omeprazole [PriLOSEC] 20 mg PO DAILY@0630 #30 capsule. 09/04/16 Allergies Allergy/AdvReac Type Severity Reaction Status Date / Time No Known Allergies Allergy Verified 07/24/18 21:53 All systems ED: reviewed and negative except as stated. Past Medical History - Past Medical History Medical history: Reports: coronary artery disease, diabetes, hyperlipidemia, hypertension, myocardial infarction, TIA Surgical history: Reports: angioplasty/stent, cholecystectomy, coronary bypass (CABG), herniorrhaphy, pacemaker/AICD Psychiatric history: Reports: no psych history - Social History Smoking Status: Former smoker Smokeless Tobacco Status: No Alcohol use: Reports: none Drug use: Reports: none Physical Exam - General Limitations: no limitations General appearance: alert, in no apparent distress - Head Head exam: atraumatic, normocephalic, normal inspection - Eye Eye exam: Present: normal appearance, PERRL, EOMI - ENT ENT exam: normal exam, normal oropharynx, mucous membranes moist, TM's normal bilaterally, normal external ear exam - Neck Neck exam: Present: normal inspection, full ROM, trachea midline - Chest Chest inspection: Present: symmetric chest wall rise. Absent: tenderness - Respiratory Respiratory exam: Present: normal lung sounds bilaterally. Absent: respiratory distress, prolonged expiratory phase - Cardiovascular Cardiovascular exam: Present: regular rate, irregular rhythm - Abdominal Exam Abdominal exam: Present: soft, Non-Tender, normal bowel sounds. Absent: tenderness, distention, guarding, rebound, rigidity - Extremities Exam Extremities exam: Present: normal inspection, full ROM, normal capillary refill. Absent: tenderness, pedal edema, joint swelling - Expanded Lower Extremity Exam Neurovascular/Tendon exam: Present: normal capillary refill. Absent: motor deficit, sensory deficit, tendon deficit, extremity cold to touch, pallor - Back Exam Back exam: Present: normal inspection, full ROM. Absent: tenderness, CVA tenderness (R), CVA tenderness (L), vertebral tenderness - Neurological Exam Neurological exam: Present: alert, oriented X3, CN II-XII intact. Absent: motor sensory deficit - Psychiatric Psychiatric exam: Present: normal affect, normal mood - Skin Skin exam: Present: warm, dry, intact, normal color Course Vital Signs Temperature 98 F 07/27/19 09:23 Pulse Rate 80 07/27/19 09:23 Respiratory Rate 15 07/27/19 09:23 Blood Pressure 150/76 07/27/19 09:23 O2 Sat by Pulse Oximetry 95 07/27/19 09:23 Temperature 98.1 F 07/27/19 19:10 Pulse Rate 71 07/27/19 19:10 Respiratory Rate 17 07/27/19 19:10 Blood Pressure 138/81 07/27/19 19:10 O2 Sat by Pulse Oximetry 96 07/27/19 19:10 Oxygen Delivery Oxygen Delivery Room Air Medical Decision Making - [facility] Narrative Medical decision making narrative: The patient had an episode today where he was unable to stand normally and had weakness in his bilateral legs with dizziness. Clinical examination reveals no focal defects. Initial laboratory studies and radiographic studies as well as EKG reviewed. In emergency department the patient was given IV fluid and monitored, Aspirin was ordered. The patient's CT head and neck with angiography shows extensive cerebrovascular disease. Based on the patient's age, significant vascular comorbidities including hypertension, hyperlipidemia, and diabetes, with acute dizziness and weakness of the lower extremities and CT head and CTA head and neck suggestive of significant cerebrovascular disease, I thought it would be appropriate to admit the patient the hospital. The patient family are agreeable. The patient does not display or have a history of unilateral arm or leg weakness or numbness slurred speech or facial droop. The patient appears to be stable. I discussed the case with the hospitalist on-call who has accepted the patient to their care. - Lab Data Lab results reviewed: Yes I reviewed the patient's lab results. Result diagrams: 07/27/19 09:36 07/27/19 09:36 Lab Results 07/27/19 07/27/19 07/27/19 Range/Units 09:36 09:36 10:00 WBC 5.7 (4.3-11.1) K/mcL RBC 4.23 (4.19-5.50) M/mcL Hgb 13.3 (12.9-16.9) g/dL Hct 39.9 (37.5-50.1) % MCV 94.3 (83.0-100.0) fL MCH 31.4 (28.0-33.3) pg MCHC 33.3 (31.6-35.5) g/dL RDW 12.5 (11.5-14.5) % Plt Count 134 L (140-400) K/mcL MPV 9.3 L (9.4-12.4) fL Immature Gran % 0.4 (0-4) % Seg Neutrophils % 70.0 % Lymphocytes % 13.7 % Monocytes % 7.6 % Eosinophils % 7.4 % Basophils % 0.9 % Neutrophils # 4.0 (1.6-8.9) K/mcL Lymphocytes # 0.8 (0.6-4.6) K/mcL Monocytes # 0.4 (0.0-1.3) K/mcL Eosinophils # 0.4 (0.0-0.6) K/mcL Basophils # 0.1 (0.0-0.2) K/mcL Sodium 138 (136-145) mEq/L Potassium 4.3 (3.5-5.1) mEq/L Chloride 102 (98-107) mEq/L Carbon Dioxide 25 (23-29) mEq/L BUN 40 H (8-23) mg/dL Creatinine 1.27 (0.70-1.30) mg/dL Est GFR ( Amer) > 60 (> 60) Est GFR (Non-Af Amer) 54 L (> 60) BUN/Creatinine Ratio 31 H (6-26) Glucose 159 H (70-105) mg/dL Calculated Osmolality 299 (280-300) Lactic Acid 0.9 (0.5-2.2) mmol/L Calcium 9.9 (8.6-10.3) mg/dL Magnesium 1.8 (1.6-2.6) mg/dL Total Bilirubin 0.6 (0.3-1.0) mg/dL AST 21 (13-39) Units/L ALT 19 (7-52) Units/L Alkaline Phosphatase 80 (34-104) Units/L Creatine Kinase 53 (30-223) Units/L Troponin I < 0.03 (< 0.04) ng/mL C-Reactive Protein < 5 (Less than 10) mg/L Serum Total Protein 6.4 (6.4-8.9) g/dL Albumin 4.1 (3.5-5.7) g/dL Globulin 2.3 L (2.4-3.5) g/dL Albumin/Globulin Ratio 1.8 (1.1-2.2) Urine Color (Yellow) Urine Clarity (Clear) Urine pH (5.0-8.0) pH Units Ur Specific [place] (1.010-1.025) Urine Protein (Neg-Trace) mg/dL Urine Glucose (UA) (Normal) mg/dL Urine Ketones (Negative) mg/dL Urine Blood (Negative) Urine Nitrite (Negative) Urine Bilirubin (Negative) Urine Urobilinogen (Normal) mg/dL Ur Leukocyte Esterase (Negative) Ur Culture Indicated? (NO) 07/27/19 Range/Units 10:23 WBC (4.3-11.1) K/mcL RBC (4.19-5.50) M/mcL Hgb (12.9-16.9) g/dL Hct (37.5-50.1) % MCV (83.0-100.0) fL MCH (28.0-33.3) pg MCHC (31.6-35.5) g/dL RDW (11.5-14.5) % Plt Count (140-400) K/mcL MPV (9.4-12.4) fL Immature Gran % (0-4) % Seg Neutrophils % % Lymphocytes % % Monocytes % % Eosinophils % % Basophils % % Neutrophils # (1.6-8.9) K/mcL Lymphocytes # (0.6-4.6) K/mcL Monocytes # (0.0-1.3) K/mcL Eosinophils # (0.0-0.6) K/mcL Basophils # (0.0-0.2) K/mcL Sodium (136-145) mEq/L Potassium (3.5-5.1) mEq/L Chloride (98-107) mEq/L Carbon Dioxide (23-29) mEq/L BUN (8-23) mg/dL Creatinine (0.70-1.30) mg/dL Est GFR ( Amer) (> 60) Est GFR (Non-Af Amer) (> 60) BUN/Creatinine Ratio (6-26) Glucose (70-105) mg/dL Calculated Osmolality (280-300) Lactic Acid (0.5-2.2) mmol/L Calcium (8.6-10.3) mg/dL Magnesium (1.6-2.6) mg/dL Total Bilirubin (0.3-1.0) mg/dL AST (13-39) Units/L ALT (7-52) Units/L Alkaline Phosphatase (34-104) Units/L Creatine Kinase (30-223) Units/L Troponin I (< 0.04) ng/mL C-Reactive Protein (Less than 10) mg/L Serum Total Protein (6.4-8.9) g/dL Albumin (3.5-5.7) g/dL Globulin (2.4-3.5) g/dL Albumin/Globulin Ratio (1.1-2.2) Urine Color Yellow (Yellow) Urine Clarity Clear (Clear) Urine pH 6.0 (5.0-8.0) pH Units Ur Specific [place] 1.014 (1.010-1.025) Urine Protein Negative (Neg-Trace) mg/dL Urine Glucose (UA) Normal (Normal) mg/dL Urine Ketones Negative (Negative) mg/dL Urine Blood Negative (Negative) Urine Nitrite Negative (Negative) Urine Bilirubin Negative (Negative) Urine Urobilinogen Normal (Normal) mg/dL Ur Leukocyte Esterase Negative (Negative) Ur Culture Indicated? NO (NO) - Radiology Data Radiology results reviewed: Yes I reviewed the patient's radiology results.
[2019-07-27] MEDS ORDERED: 0.9 % Sodium Chloride 1,000 ML IVC ONE (09:30)
[2019-07-27] MEDS ORDERED: Isovue-370 500 ML BOTTLE IVP ONE (09:50)
[2019-07-27 10:11] LABS: Basophils # 0.1 K/mcL (0.0-0.2); Basophils % 0.9 %; Eosinophils # 0.4 K/mcL (0.0-0.6); Eosinophils % 7.4 %; Hematocrit 39.9 % (37.5-50.1); Hemoglobin 13.3 g/dL (12.9-16.9); Immature Granulocytes % 0.4 % (0-4); Lymphocytes # 0.8 K/mcL (0.6-4.6); Lymphocytes % 13.7 %; Mean Corpuscular HGB Conc 33.3 g/dL (31.6-35.5); Mean Corpuscular Hemoglobin 31.4 pg (28.0-33.3); Mean Corpuscular Volume 94.3 fL (83.0-100.0); Mean Platelet Volume 9.3 fL (9.4-12.4); Monocytes # 0.4 K/mcL (0.0-1.3); Monocytes % 7.6 %; Platelet Count 134 K/mcL (140-400); Red Blood Count 4.23 M/mcL (4.19-5.50); Red Cell Distribution Width 12.5 % (11.5-14.5); White Blood Count 5.7 K/mcL (4.3-11.1)
[2019-07-27 10:14] LABS: Alanine Aminotransferase 19 Units/L (7-52); Albumin 4.1 g/dL (3.5-5.7); Albumin/Globulin Ratio 1.8 (1.1-2.2); Alkaline Phosphatase 80 Units/L (34-104); Aspartate Amino Transferase 21 Units/L (13-39); BUN/Creatinine Ratio 31 (6-26); Bilirubin,Total 0.6 mg/dL (0.3-1.0); Blood Urea Nitrogen 40 mg/dL (8-23); C-Reactive Protein < 5 mg/L (Less than 10); Calcium 9.9 mg/dL (8.6-10.3); Carbon Dioxide 25 mEq/L (23-29); Chloride 102 mEq/L (98-107); Creatine Kinase 53 Units/L (30-223); Globulin 2.3 g/dL (2.4-3.5); Glucose 159 mg/dL (70-105); Magnesium 1.8 mg/dL (1.6-2.6); Osmolality,Calculated 299 (280-300); Potassium 4.3 mEq/L (3.5-5.1); Sodium 138 mEq/L (136-145); Total Protein 6.4 g/dL (6.4-8.9); Troponin I < 0.03 ng/mL (< 0.04); eGFR For African Americans > 60 (> 60); eGFR For Non-African Americans 54 (> 60)
[2019-07-27 10:42] LABS: Bilirubin,Urine Negative (Negative); Blood,Urine Negative (Negative); Clarity,Urine Clear (Clear); Color,Urine Yellow (Yellow); Glucose,Urine (UA) Normal (Normal); Ketones,Urine Negative (Negative); Leukocyte Esterase,Urine Negative (Negative); Nitrite,Urine Negative (Negative); Protein,Urine Negative (Neg-Trace); Specific Gravity,Urine 1.014 (1.010-1.025); Urobilinogen,Urine Normal (Normal)
[2019-07-27] MEDS ORDERED: Ondansetron 4 MG/2 ML VIAL IVP PRN (15:33)
[2019-07-27] MEDS ORDERED: Ringers Solution, Lactated 1,000 ML IVC SCH (15:45)
--- NOTE | 2019-07-27 15:46 | Internal Med History&Physical ---
Date of Encounter: 07/27/19 Time of Encounter: 14:10 Internal Medicine - H&P: HPI Chief complaint: Disorientation, dizziness Admitted From: Home Plans for Post Hospital Care: Home History of present illness: Mr. Muller is a 89 year old male with history of type II DM, CAD status post CABG, HFpEF, CVA who presented with his daughter due to confusion and dizziness. By the time i met him, his confusion had resolved. As per the daughter, she was waiting for him for breakfast when she had an noise coming from his bathroom. She checked on him and she found him wobbling front and back. Patient was dizzy and weak in his LEs. He felt himself disoriented. As per the daughter, he recovered from UTI 2 months ago. She noticed decrease oral intake in the past few days. Patient declined chest pain, shortness of breath, palpitation, abdominal pain, nausea/vomiting, urinary or bowel changes. He had no recent fever, chills, night sweats or sick contacts. In the ED, patient was afebrile, hemodynamically stable. Blood work was essentially normal except for elevated BUN/creatinine ratio. CT angios to head and neck did not reveal acute infarct however it showed old infarction in the right parietal and occipital lobes, volume loss multiple stenosis in the intracranial arteries. Patient was given 1 L of IV fluid. Past Med Surg Social Fam HX - Past Medical History Medical history: coronary artery disease, diabetes, hyperlipidemia, hypertension, myocardial infarction, TIA Psychiatric history: no psych history - Past Surgical History Surgical History: angioplasty/stent, cholecystectomy, coronary bypass (CABG), herniorrhaphy, pacemaker/AICD Additional surgical history: Hernia repair - Social History Smoking Status: Former smoker Smokeless Tobacco Status: No Alcohol use: none Drug use: none Current living situation: Home - Independent Activity Level: Independent ambulation Recent Out of Country Travel Within the Last 8 Weeks: No Exposure or Possible Exposure to Illness During Travel: No - Family History Father Adopted: No Living Status: Hx Family Cardiac Disorders: Yes (heart attack) Mother Living Status: Hx Family Endocrine Disorder: Yes (Diabetes) - Additional Family History Additional family history: Reviewed and noncontributory Internal Medicine - H&P: Meds Pravastatin Sodium [Pravachol] 80 mg PO QPM 06/23/15 [History] Carvedilol [Coreg] 12.5 mg PO BID #60 tablet 09/04/16 [Rx] Lisinopril [Zestril] 2.5 mg PO DAILY #30 tablet 09/04/16 [Rx] Omeprazole [PriLOSEC] 20 mg PO DAILY@0630 #30 capsule. 09/04/16 [Rx] Clopidogrel [Plavix] 75 mg PO QAM 07/24/18 [History] Ferrous Sulfate [Iron] 325 mg PO BID 07/24/18 [History] Finasteride [Proscar] 5 mg PO DAILY 07/24/18 [History] Furosemide [Lasix] 80 mg PO BID 07/24/18 [History] Glimepiride [Amaryl] 1 mg PO DAILY 07/24/18 [History] Levothyroxine [Synthroid] 75 mcg PO QAM 07/24/18 [History] Metformin HCl 1,000 mg PO BID 07/24/18 [History] Nitroglycerin [Nitrostat] 0.4 mg SL AD PRN 07/24/18 [History] Silodosin [Rapaflo] 8 mg PO QPM 07/24/18 [History] Vitamin B Complex [B Complex] 1 each PO QPM 07/24/18 [History] Allergy/AdvReac Type Severity Reaction Status Date / Time No Known Allergies Allergy Verified 07/24/18 21:53 All Systems PM: A 10-system review of systems was performed and is negative for pertinent findings except as documented above in the HPI. - Constitutional Vitals: Temp Pulse Resp BP Pulse Ox 98 F 73 12 121/62 98 07/27/19 09:23 07/27/19 14:44 07/27/19 14:44 07/27/19 14:44 07/27/19 14:44 Exam: General: Patient is alert, oriented 3. Head: Atraumatic, normal inspection, normocephalic. Eye: EOMI, PERRLA, ENT: Mucous membranes moist. Neck: Normal inspection, Respiratory: No respiratory distress, rhonchi, or wheezes noted. Cardiovascular: Regular rate and regular rhythm, S1 and S2 audible. No murmurs, rubs, or gallops. GI: Soft, nondistended, normal bowel sounds. Extremities:No joint swelling, pedal edema, or tenderness noted. Neurological: Alert, oriented 3, no focal deficits. CN II-XII are intact, strength is 5/5 in upper and lower asymmetry. Sensation are intact, Babinski sign is equivocal bilaterally Psychiatric: normal affect, normal mood. Skin: Dry, intact, warm. Normal color. No rashes. Internal Med - H&P Results - Labs CBC & Chem 7: 07/27/19 09:36 07/27/19 09:36 Labs: Short CBC 07/27/19 Range/Units 09:36 WBC 5.7 (4.3-11.1) K/mcL Hgb 13.3 (12.9-16.9) g/dL Hct 39.9 (37.5-50.1) % Plt Count 134 L (140-400) K/mcL Neutrophils # 4.0 (1.6-8.9) K/mcL BMP 07/27/19 09:36 Sodium 138 Potassium 4.3 Chloride 102 Carbon Dioxide 25 BUN 40 H Creatinine 1.27 Glucose 159 H Calcium 9.9 Cardiac Enzymes 07/27/19 Range/Units 09:36 Troponin I < 0.03 (< 0.04) ng/mL Liver Function 07/27/19 Range/Units 09:36 Total Bilirubin 0.6 (0.3-1.0) mg/dL AST 21 (13-39) Units/L ALT 19 (7-52) Units/L Alkaline Phosphatase 80 (34-104) Units/L Albumin 4.1 (3.5-5.7) g/dL Urine 07/27/19 Range/Units 10:23 Urine Color Yellow (Yellow) Urine Clarity Clear (Clear) Urine pH 6.0 (5.0-8.0) pH Units Ur Specific [place] 1.014 (1.010-1.025) Urine Protein Negative (Neg-Trace) mg/dL Urine Glucose (UA) Normal (Normal) mg/dL - EKG Data -: EKG Interpreted by Myself Rate: normal - EKG Data Prior EKG available for review: yes When compared to previous EKG: there is no significant change - Impressions ITS Impressions Chest X-Ray 07/27/19 10:17 IMPRESSION: Stable examination. D/ / Timothy Givens MD / Timothy Givens MD Interpreting Provider: Timothy Givens MD Angiography CT 07/27/19 11:45 IMPRESSION: No acute intracranial abnormality. 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 Moderate to severe chronic microvascular disease. Heavy atherosclerotic calcification along the bilateral cavernous and proximal supraclinoid internal carotid arteries, contributing to 70% focal stenosis on the right and 50% focal stenosis on the left. 30% stenosis in the mid basilar artery. 40% focal stenosis in the mid V4 segment of the left vertebral artery. 50% focal stenosis at the origin of the left cervical internal carotid artery. No acute abnormality or additional flow limiting stenosis in the remainder of the major arteries of the neck. Plaque-like nodular thickening of the left major fissure, may be related to infection/inflammation. Follow-up is recommended to exclude neoplasm. Bronchial wall thickening at the lung apices, likely related to small airway disease or bronchiolitis. D/ / Yony Kumar MD / Yony Kumar MD Interpreting Provider: Yony Kumar MD Neck CTA 07/27/19 11:45 IMPRESSION: No acute intracranial abnormality. 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 Moderate to severe chronic microvascular disease. Heavy atherosclerotic calcification along the bilateral cavernous and proximal supraclinoid internal carotid arteries, contributing to 70% focal stenosis on the right and 50% focal stenosis on the left. 30% stenosis in the mid basilar artery. 40% focal stenosis in the mid V4 segment of the left vertebral artery. 50% focal stenosis at the origin of the left cervical internal carotid artery. No acute abnormality or additional flow limiting stenosis in the remainder of the major arteries of the neck. Plaque-like nodular thickening of the left major fissure, may be related to infection/inflammation. Follow-up is recommended to exclude neoplasm. Bronchial wall thickening at the lung apices, likely related to small airway disease or bronchiolitis. D/ / Yony Kumar MD / Yony Kumar MD Interpreting Provider: Yony Kumar MD - Diagnostic Studies Chest x-ray Status: image reviewed by me - Assessment and Plan (1) Confusion Current Visit: Yes Status: Acute Assessment and plan: - Suspected due to dehydration vs TIA. - CTA without acute findings but revealed multiple stenosis in the intracranial arteries. - BUun/Cr >20, will give 1 L of IVF, hold lasix, check orthostatic vitals. - Neurology consult. - Will r/o infection, UA is -, CXR is -, BCx is pending. (2) Atrial fibrillation Current Visit: Yes Status: Chronic Assessment and plan: - Not on AC, daughter and patient are not sure why. - Previous notes revealed anemia on xarelto. COntinue BB and plavix. Qualifiers: Atrial fibrillation type: unspecified Qualified Code(s): I48.91 - Unspecified atrial fibrillation (3) CAD (coronary artery disease) Current Visit: Yes Status: Chronic Assessment and plan: - Continue statin, plavix and BB. Qualifiers: Coronary Disease-Associated Artery/Lesion type: [place] artery [place] vs. transplanted heart: [place] heart Associated angina: without angina Qualified Code(s): I25.10 - Atherosclerotic heart disease of [place] coronary artery without angina pectoris (4) CHF (congestive heart failure) Current Visit: Yes Status: Chronic Assessment and plan: - Hold lasix for today, patient is more on the dehydration side. Qualifiers: Heart failure type: systolic Heart failure chronicity: chronic Qualified Code(s): I50.22 - Chronic systolic (congestive) heart failure (5) Diabetes Current Visit: Yes Status: Chronic Assessment and plan: - Stop oral medications, on LSSI, accu checks TIDac, ADA Qualifiers: Diabetes mellitus type: type 2 Diabetes mellitus oil heaterman insulin use: without oil heaterman use Diabetes mellitus complication status: without complication Qualified Code(s): E11.9 - Type 2 diabetes mellitus without complications - Time Spent With Patient Total time spent is greater than 50% in coordination of care (as documented) at patient's floor/unit and/or counseling patient:
[2019-07-27] MEDS ORDERED: D5% in Water 1,000 ML IVC PRN (15:55)
[2019-07-27] MEDS ORDERED: *HR* Dextrose 50 % in Water (Syg) 50 ML SYRINGE IVP PRN (15:55)
[2019-07-27] MEDS ORDERED: Dextrose Gel 15 GM/37.5 ML TUBE PO PRN ×2 (15:55)
[2019-07-27] MEDS: *HR* Heparin 5,000 UNIT/ML VIAL SQ SCH (18:01)
[2019-07-27] MEDS: Insulin LISPRO 300 UNITS/3 ML VIAL SQ SCH (18:06)
[2019-07-27] MEDS ORDERED: Nitroglycerin 0.4 MG TAB.SUBL SL PRN (21:13)
[2019-07-27] MEDS: SILODOSIN 8 MG PO SCH (22:43)
[2019-07-28 02:35] LABS: Basophils # 0.1 K/mcL (0.0-0.2); Eosinophils # 0.4 K/mcL (0.0-0.6); Eosinophils % 6.5 %; Hemoglobin 11.8 g/dL (12.9-16.9); Immature Granulocytes % 0.3 % (0-4); Lymphocytes # 0.9 K/mcL (0.6-4.6); Lymphocytes % 15.1 %; Mean Corpuscular HGB Conc 33.7 g/dL (31.6-35.5); Mean Corpuscular Hemoglobin 31.6 pg (28.0-33.3); Mean Corpuscular Volume 93.8 fL (83.0-100.0); Mean Platelet Volume 9.3 fL (9.4-12.4); Monocytes # 0.6 K/mcL (0.0-1.3); Monocytes % 9.8 %; Neutrophils # 3.9 K/mcL (1.6-8.9); Platelet Count 120 K/mcL (140-400); Red Blood Count 3.73 M/mcL (4.19-5.50); Red Cell Distribution Width 12.5 % (11.5-14.5); Segmented Neutrophils % 67.3 %; White Blood Count 5.8 K/mcL (4.3-11.1)
[2019-07-28 02:55] LABS: Calcium 9.4 mg/dL (8.6-10.3); Potassium 3.7 mEq/L (3.5-5.1)
[2019-07-28] MEDS: *HR* Heparin 5,000 UNIT/ML VIAL SQ SCH ×2 (06:11→17:08)
[2019-07-28] MEDS: Finasteride 5 MG TABLET PO SCH (08:05)
[2019-07-28] MEDS: Insulin LISPRO 300 UNITS/3 ML VIAL SQ SCH ×3 (08:08→17:07)
[2019-07-28] MEDS ORDERED: 0.9 % Sodium Chloride 1,000 ML IVC SCH ×2 (09:00→16:28)
--- NOTE | 2019-07-28 09:42 | Neurology - Consult Note ---
<Inez Cabrera N - Last Filed: 07/28/19 11:30> Date of Encounter: 07/28/19 Time of Encounter: 09:42 Assessment and Plan (1) Dizziness Current Visit: Yes Status: Acute Patient presented to the ED after an episode of dizziness and lower extremity weakness, which has since resolved. Family reports a history of "TIA" in the past, but denies any knowledge of prior stroke. 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 Susceptibility artifact within the right occipital lobe is consistent with remote hemorrhage. No acute intracranial abnormalities. 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 * Mild parenchymal volume loss. * Moderate to severe chronic microvascular disease. * Heavy atherosclerotic calcification along the bilateral cavernous and proximal supraclinoid internal carotid arteries, contributing to 70% focal stenosis on the right and 50% focal stenosis on the left. * 30% stenosis in the mid basilar artery. * 40% focal stenosis in the mid V4 segment of the left vertebral artery. * 50% focal stenosis at the origin of the left cervical internal carotid artery. No acute abnormality or additional flow limiting stenosis in the remainder of the major arteries of the neck. Patient was noted to be dehydrated at the time of admission, and admits to poor fluid intake on a regular basis. Recommendations: - Continue TIA workup and obtain echocardiogram. - Continue IVF and PO hydration per primary team. - Continue aspirin and plavix. - Increase lipitor from current dose of 20mg, as patient would benefit from high-intensity statin therapy. (2) Intracranial atherosclerosis Current Visit: Yes Status: Acute History of Present Illness Chief complaint: Dizziness, weakness HPI: Mr. Muller is a 89 year old male with a history of diabetes, CAD s/p CABG, CHF, and atrial fibrillation who presented to the emergency department yesterday for evaluation of dizziness and lower extremity weakness. Patient reportedly got up yesterday morning and went to the bathroom, where he felt very dizzy and weak. He reports that he felt like he was "not right". Patient's daughter called EMS, and patient was transported to the emergency department for evaluation. He reports that his symptoms did improve, and he was able to ambulate in the emerge ncy department without difficulty. In the emergency department, patient underwent imaging studies, which demonstrated no acute intracranial abnormalities. He was found to be dehydrated, and was administered 1L IVF hydration. On evaluation this morning, patient reports resolution of his symptoms. His daughter, who is present at bedside, provides most of his history. She reports that she has been caring for her father for the last 11 years with the assistance of her sister, though the patient does stay alone at night. They endorse that he is able to carry out ADLs without difficulty. He was recently hospitalized for a UTI; his daughter states that he was instructed to drink a minimum of 2L of water per day; however, patient regularly consumes only half of that. They endorse a history of "TIAs", reporting the patient has had episodes where he is able to speak; however, the words he is saying are not the ones he is intending to say. They deny any knowledge of previous strokes. Patient has been on anticoagulation in the past with eliquis; however, this was discontinued secondary to anemia, and patient is currently on aspirin and Plavix. Patient denies any dizziness, lightheadedness, numbness, weakness, or other complaints at this time. Past Med Surg Social Fam HX - Past Medical History Medical history: coronary artery disease, diabetes, hyperlipidemia, hypertension, myocardial infarction, TIA Psychiatric history: no psych history - Past Surgical History Surgical History: angioplasty/stent, cholecystectomy, coronary bypass (CABG), herniorrhaphy, pacemaker/AICD Additional surgical history: Hernia repair - Social History Smoking Status: Former smoker Smokeless Tobacco Status: No Alcohol use: none Drug use: none - Family History Father Adopted: No Living Status: Hx Family Cardiac Disorders: Yes (heart attack) Mother Living Status: Hx Family Endocrine Disorder: Yes (Diabetes) Medications and Allergies Pravastatin Sodium [Pravachol] 80 mg PO QPM 06/23/15 [History] Carvedilol [Coreg] 12.5 mg PO BID #60 tablet 09/04/16 [Rx] Lisinopril [Zestril] 2.5 mg PO DAILY #30 tablet 09/04/16 [Rx] Omeprazole [PriLOSEC] 20 mg PO DAILY@0630 #30 capsule. 09/04/16 [Rx] Clopidogrel [Plavix] 75 mg PO QAM 07/24/18 [History] Ferrous Sulfate [Iron] 325 mg PO BID 07/24/18 [History] Finasteride [Proscar] 5 mg PO DAILY 07/24/18 [History] Furosemide [Lasix] 80 mg PO BID 07/24/18 [History] Glimepiride [Amaryl] 1 mg PO DAILY 07/24/18 [History] Levothyroxine [Synthroid] 75 mcg PO QAM 07/24/18 [History] Metformin HCl 1,000 mg PO BID 07/24/18 [History] Nitroglycerin [Nitrostat] 0.4 mg SL AD PRN 07/24/18 [History] Silodosin [Rapaflo] 8 mg PO QPM 07/24/18 [History] Vitamin B Complex [B Complex] 1 each PO QPM 07/24/18 [History] Allergy/AdvReac Type Severity Reaction Status Date / Time No Known Allergies Allergy Verified 07/24/18 21:53 All Systems: The remainder of the systems were reviewed and are negative - Constitutional Constitutional ROS IM: weakness, no anorexia, no fatigue, no frequent falls - Cardiovascular Cardiovascular ROS IM: irregular heart rhythm (history of atrial fibrillation), lightheadedness, no chest pain - Respiratory Respiratory IM: no dyspnea - Neurological Neurological ROS: abnormal speech, dizziness, focal weakness, weakness, no abnormal gait, no confusion, no headache(s), no lack of coordination, no loss of vision, no memory loss, no numbness, no paresthesias, no sensory deficit, no syncope, no tremor(s), no other visual disturbances Physical Examination - Vital Signs Vital Signs: Initial Vital Signs Temp Pulse Resp BP Pulse Ox 98 F 80 15 150/76 95 07/27/19 09:23 07/27/19 09:23 07/27/19 09:23 07/27/19 09:23 07/27/19 09:23 - Constitutional General appearance: comfortable - Neurologic Detailed motor examination: full strength in all major muscle groups Motor examination - right side: 4/5: deltoids, biceps, triceps, 5/5: all round logger, hip flexors, tibialis Anterior, quadriceps, toe extension (EHL), plantarflexion Motor examination - left side: 3/5: deltoids (secondary to chronic left shoulder pain), 4/5: biceps, triceps, 5/5: hip flexors, all round logger, quadriceps, tibialis Anterior, toe extension (EHL), plantarflexion Detailed sensory examination: intact, light touch Reflex and gait examination: intact Reflexes: Biceps: 2+, Patella: 2+, Achilles: 2+ Mental Status Examination: awake, alert, oriented to person, oriented to place, oriented to time, follows commands appropriately, answers questions appropriately, no agnosia, no aphasia, no aproxia Cranial nerve examination: PERRL, EOMI, no facial asymmetry is present, no dysarthria, hearing is intact symmetrically, flexes SCM and trapezius muscles symmetrically with full power, tongue protrudes midline, no atrophy or facial fasiculations present Results - Laboratory Findings CBC and BMP: 07/28/19 02:16 07/28/19 02:16 Abnormal lab findings: Abnormal lab results RBC 3.73 M/mcL (4.19-5.50) L 07/28/19 02:16 Hgb 11.8 g/dL (12.9-16.9) L D 07/28/19 02:16 Hct 35.0 % (37.5-50.1) L 07/28/19 02:16 Plt Count 120 K/mcL (140-400) L 07/28/19 02:16 MPV 9.3 fL (9.4-12.4) L 07/28/19 02:16 BUN 37 mg/dL (8-23) H 07/28/19 02:16 Creatinine 1.61 mg/dL (0.70-1.30) H 07/28/19 02:16 Est GFR ( Amer) 49 (> 60) L 07/28/19 02:16 Est GFR (Non-Af Amer) 41 (> 60) L 07/28/19 02:16 BUN/Creatinine Ratio 31 (6-26) H 07/27/19 09:36 Glucose 159 mg/dL (70-105) H 07/27/19 09:36 POC Glucose 128 mg/dL (70-99) H 07/27/19 20:20 Globulin 2.3 g/dL (2.4-3.5) L 07/27/19 09:36 Consult Discharge Plan - Plan Referrals: Wander Sandoval MD [Primary Care Provider] - 08/02/19 1:00 pm <Darius Hernandez I - Last Filed: 07/28/19 12:58> Date of Encounter: 07/28/19 Assessment and Plan (1) Dizziness Current Visit: Yes Status: Acute Pt was seen and examined, my medical decision was reviewed with the Resident Physician, I agree with the documented findings, disposition and treatment plan, as described except to the extent set forth below No focal motor deficit noted on exam patient has significant the intra-and extracranial atherosclerotic disease likely the reason for his dizziness and lightheadedness which he would continue to experience suggest keeping him well hydrated considering significant stenosis and his age do not think that he be a candidate for any neurovascular intervention best will be to maximize medical treatment with antiplatelet as well as with statin Recommended to monitor for any atrial fibrillation and also check for any embolic source. He would benefit from physical therapy evaluation as well Darius Hernandez MD (2) Intracranial atherosclerosis Current Visit: Yes Status: Acute History of Present Illness HPI: Mr. Muller is a 89 year old male All Systems: The remainder of the systems were reviewed and are negative Physical Examination - Vital Signs Vital Signs: Initial Vital Signs Temp Pulse Resp BP Pulse Ox 98 F 80 15 150/76 95 07/27/19 09:23 07/27/19 09:23 07/27/19 09:23 07/27/19 09:23 07/27/19 09:23 Results - Laboratory Findings CBC and BMP: 07/28/19 02:16 07/28/19 02:16 Abnormal lab findings: Abnormal lab results RBC 3.73 M/mcL (4.19-5.50) L 07/28/19 02:16 Hgb 11.8 g/dL (12.9-16.9) L D 07/28/19 02:16 Hct 35.0 % (37.5-50.1) L 07/28/19 02:16 Plt Count 120 K/mcL (140-400) L 07/28/19 02:16 MPV 9.3 fL (9.4-12.4) L 07/28/19 02:16 BUN 37 mg/dL (8-23) H 07/28/19 02:16 Creatinine 1.61 mg/dL (0.70-1.30) H 07/28/19 02:16 Est GFR ( Amer) 49 (> 60) L 07/28/19 02:16 Est GFR (Non-Af Amer) 41 (> 60) L 07/28/19 02:16 BUN/Creatinine Ratio 31 (6-26) H 07/27/19 09:36 Glucose 159 mg/dL (70-105) H 07/27/19 09:36 POC Glucose 128 mg/dL (70-99) H 07/27/19 20:20 Globulin 2.3 g/dL (2.4-3.5) L 07/27/19 09:36
--- NOTE | 2019-07-28 10:28 | Electrocardiograph Report ---
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
[2019-07-28] MEDS ORDERED: Aspirin 325 MG TABLET PO ONE (14:35)
--- NOTE | 2019-07-28 16:23 | Internal Med Progress Note ---
Hospitalist Progress Note - Encounter Date of Encounter: 07/28/19 Time of Encounter: 11:00 - Subjective Interval History: No acute events overnight - Exam Vitals: Temp Pulse Resp BP Pulse Ox 98.1 F 71 16 114/71 97 07/28/19 15:47 07/28/19 15:47 07/28/19 15:47 07/28/19 15:47 07/28/19 15:47 Exam: General: Patient is alert, oriented 3. Head: Atraumatic, normal inspection, normocephalic. Eye: EOMI, PERRLA, ENT: Mucous membranes moist. Neck: Normal inspection, Respiratory: No respiratory distress, rhonchi, or wheezes noted. Cardiovascular: Regular rate and regular rhythm, S1 and S2 audible. No murmurs, rubs, or gallops. GI: Soft, nondistended, normal bowel sounds. Extremities:No joint swelling, pedal edema, or tenderness noted. Neurological: Alert, oriented 3, no focal deficits. CN II-XII are intact, strength is 5/5 in upper and lower asymmetry. Sensation are intact, Babinski sign is equivocal bilaterally Psychiatric: normal affect, normal mood. Skin: Dry, intact, warm. Normal color. No rashes. - Assessment and Plan (1) Syncope Current Visit: Yes Status: Acute Assessment and Plan: Pt had syncope with wobbly gait likely 2/2 to dehydration CTA head showed 70% stenosis in Right ICA but per vascular surgery no acute intervention Had ATUL today and has been on high doses of lasix at home. Will hydrate gently wth IV fluids Obtain 2D echo to assess EF (2) Confusion Current Visit: Yes Status: Acute Assessment and Plan: - Suspected due to dehydration vs TIA. - CTA without acute findings but revealed multiple stenosis in the intracranial arteries. - BUun/Cr >20, will give 1 L of IVF, hold lasix, check orthostatic vitals. - improved with hydration (3) Atrial fibrillation Current Visit: Yes Status: Chronic Assessment and Plan: - Not on AC, daughter and patient are not sure why. - Previous notes revealed anemia on xarelto. COntinue BB and plavix. (4) CAD (coronary artery disease) Current Visit: Yes Status: Chronic Assessment and Plan: - Continue statin, plavix and BB. (5) CHF (congestive heart failure) Current Visit: Yes Status: Chronic Assessment and Plan: - Hold lasix for today, patient is more on the dehydration side. (6) Diabetes Current Visit: Yes Status: Chronic Assessment and Plan: - Stop oral medications, on LSSI, accu checks TIDac, ADA - Time Spent with Patient Total time spent is greater than 50% in coordination of care (as documented) at patient's floor/unit and/or counseling patient: Internal Medicine: Result - Labs CBC & Chem 7: 07/28/19 02:16 07/28/19 02:16 Labs: Short CBC 07/28/19 Range/Units 02:16 WBC 5.8 (4.3-11.1) K/mcL Hgb 11.8 L D (12.9-16.9) g/dL Hct 35.0 L (37.5-50.1) % Plt Count 120 L (140-400) K/mcL Neutrophils # 3.9 (1.6-8.9) K/mcL BMP 07/28/19 02:16 Sodium 139 Potassium 3.7 Chloride 102 Carbon Dioxide 27 BUN 37 H Creatinine 1.61 H Glucose 83 Calcium 9.4 - Impressions Impressions Brain MRI 07/27/19 22:17 IMPRESSION: No acute intracranial abnormality visualized. D/ / Haris Ireland MD / Haris Ireland MD Interpreting Provider: Haris Ireland MD Consult Discharge Plan - Plan Referrals: Wander Sandoval MD [Primary Care Provider] - 08/02/19 1:00 pm __ (3) Atrial fibrillation Qualifiers: Atrial fibrillation type: unspecified Qualified Code(s): I48.91 - Unspecified atrial fibrillation (4) CAD (coronary artery disease) Qualifiers: Coronary Disease-Associated Artery/Lesion type: [place] artery [place] vs. transplanted heart: [place] heart Associated angina: without angina Qualified Code(s): I25.10 - Atherosclerotic heart disease of [place] coronary artery without angina pectoris (5) CHF (congestive heart failure) Qualifiers: Heart failure type: systolic Heart failure chronicity: chronic Qualified Code(s): I50.22 - Chronic systolic (congestive) heart failure (6) Diabetes Qualifiers: Diabetes mellitus type: type 2 Diabetes mellitus mcfp insulin use: without tank terminal gauger use Diabetes mellitus complication status: without complication Qualified Code(s): E11.9 - Type 2 diabetes mellitus without complications
[2019-07-28] MEDS: SILODOSIN 8 MG PO SCH (20:00)
[2019-07-29 02:06] LABS: Basophils # 0.1 K/mcL (0.0-0.2); Basophils % 0.9 %; Eosinophils # 0.3 K/mcL (0.0-0.6); Eosinophils % 5.9 %; Hematocrit 34.9 % (37.5-50.1); Hemoglobin 11.5 g/dL (12.9-16.9); Immature Granulocytes % 0.2 % (0-4); Lymphocytes # 0.8 K/mcL (0.6-4.6); Mean Corpuscular Hemoglobin 31.1 pg (28.0-33.3); Mean Corpuscular Volume 94.3 fL (83.0-100.0); Mean Platelet Volume 9.4 fL (9.4-12.4); Monocytes # 0.5 K/mcL (0.0-1.3); Monocytes % 9.6 %; Neutrophils # 3.7 K/mcL (1.6-8.9); Platelet Count 113 K/mcL (140-400); Red Cell Distribution Width 12.6 % (11.5-14.5); Segmented Neutrophils % 68.4 %; White Blood Count 5.4 K/mcL (4.3-11.1)
[2019-07-29 02:56] LABS: BUN/Creatinine Ratio 24 (6-26); Blood Urea Nitrogen 32 mg/dL (8-23); Calcium 9.2 mg/dL (8.6-10.3); Carbon Dioxide 25 mEq/L (23-29); Chloride 103 mEq/L (98-107); Glucose 89 mg/dL (70-105); Magnesium 1.8 mg/dL (1.6-2.6); Osmolality,Calculated 292 (280-300); Phosphorous 3.4 mg/dL (2.7-4.5); Potassium 3.8 mEq/L (3.5-5.1); Sodium 138 mEq/L (136-145); eGFR For African Americans > 60 (> 60); eGFR For Non-African Americans 51 (> 60)
[2019-07-29] MEDS: *HR* Heparin 5,000 UNIT/ML VIAL SQ SCH (05:23)
[2019-07-29] MEDS: Insulin LISPRO 300 UNITS/3 ML VIAL SQ SCH ×2 (08:34→11:57)
[2019-07-29] MEDS: Finasteride 5 MG TABLET PO SCH (08:40)
--- NOTE | 2019-07-29 09:05 | Neurology Progress Note ---
<Inez Cabrera N - Last Filed: 07/29/19 11:34> Date of Encounter: 07/29/19 Time of Encounter: 09:05 Assessment and Plan (1) Dizziness Status: Acute Suspect secondary to dehydration and intracranial atherosclerosis. Echocardiogram was ordered by primary team; however, this does not appear to have resulted yet. Recommend continuing current antiplatelet and statin therapy, as well as maintaining adequate hydration. Patient has had no recurrence of symptoms. Suspe ct that his confusion this morning is likely secondary to hospitalization and decreased sleep overnight. Recommend obtaining echo results prior to hospital discharge. Neurology will sign off at this time; please call with any questions or concerns. (2) Intracranial atherosclerosis Status: Acute Subjective Principal diagnosis: Dizziness Interval history: Mr. Muller was seen and evaluated at the bedside this morning. He and his daughters, who are present at the bedside, report that he has had some confusion today, which is unusual; however, they also note that he did not sleep well last night, and usually sleeps quite a bit. He is able to state where he is; however, he is unable to state what day, month, or year it is. He is unable to state who the president is; however, he states that he would know him if he saw a photo of him. He denies any recurrent dizziness, lightheadedness, numbness, or weakness, and denies any new complaints or concerns at this time. Objective - Constitutional Vitals: Temp Pulse Resp BP Pulse Ox 97.7 F 75 19 127/71 94 07/29/19 07:12 07/29/19 07:12 07/29/19 07:12 07/29/19 07:12 07/29/19 07:12 General appearance: Present: cooperative, A&O X 1, pleasant, no acute distress - Head Head exam: Present: atraumatic, normocephalic - Extremities Exam Extremities exam: Present: warm. Absent: calf tenderness, cyanotic, pedal edema - Neurological Exam Motor Examination: Present: grossly full strength in all extremities Motor examination - left side: 3/5: deltoids (secondary to chronic left shoulder pain), 4/5: biceps, triceps Sensation intact: Present: intact, light touch Reflex and gait examination: intact Mental Status Examination: Present: awake, alert, oriented to person, follows commands appropriately, answers questions appropriately, no agnosia, no aphasia, no aproxia. Absent: oriented to place, oriented to time, agitated Cranial nerve examination: Present: PERRL, EOMI, no facial asymmetry is present, no dysarthria, hearing is intact symmetrically, tongue protrudes midline, no atrophy or facial fasiculations present Results - Laboratory Findings CBC and BMP: 07/29/19 00:07 07/29/19 00:07 Abnormal lab findings: Abnormal lab results RBC 3.70 M/mcL (4.19-5.50) L 07/29/19 00:07 Hgb 11.5 g/dL (12.9-16.9) L 07/29/19 00:07 Hct 34.9 % (37.5-50.1) L 07/29/19 00:07 Plt Count 113 K/mcL (140-400) L 07/29/19 00:07 MPV 9.3 fL (9.4-12.4) L 07/28/19 02:16 BUN 32 mg/dL (8-23) H 07/29/19 00:07 Creatinine 1.33 mg/dL (0.70-1.30) H 07/29/19 00:07 Est GFR ( Amer) 49 (> 60) L 07/28/19 02:16 Est GFR (Non-Af Amer) 51 (> 60) L 07/29/19 00:07 BUN/Creatinine Ratio 31 (6-26) H 07/27/19 09:36 Glucose 159 mg/dL (70-105) H 07/27/19 09:36 POC Glucose 106 mg/dL (70-99) H 07/28/19 21:10 Globulin 2.3 g/dL (2.4-3.5) L 07/27/19 09:36 Consult Discharge Plan - Plan Instructions: Atrial Fibrillation (DC), Urinary Tract Infection in Men (DC), Syncope (DC), Peripheral Vascular Disorders (DC), Weakness (GEN), Hypertension (DC), Hyperlipidemia (DC) Referrals: Wander Sandoval MD [Primary Care Provider] - 08/02/19 1:00 pm <Darius Hernandez I - Last Filed: 07/30/19 08:52> Date of Encounter: 07/27/19 Assessment and Plan (1) Dizziness Status: Acute Pt was seen and examined, my medical decision was reviewed with the Resident Physician, I agree with the documented findings, disposition and treatment plan, as described except to the extent set forth below Clinically stable he may continue to show dizziness because of significant intracranial atherosclerotic disease suggests hydration continue on antiplatelet therapy along with statin Darius Hernandez MD (2) Intracranial atherosclerosis Status: Acute Objective - Constitutional Vitals: Temp Pulse Resp BP Pulse Ox 98.1 F 80 19 125/74 95 07/29/19 11:11 07/29/19 11:11 07/29/19 11:11 07/29/19 11:11 07/29/19 11:11 Results - Laboratory Findings CBC and BMP: 07/29/19 00:07 07/29/19 00:07 Abnormal lab findings: Abnormal lab results RBC 3.70 M/mcL (4.19-5.50) L 07/29/19 00:07 Hgb 11.5 g/dL (12.9-16.9) L 07/29/19 00:07 Hct 34.9 % (37.5-50.1) L 07/29/19 00:07 Plt Count 113 K/mcL (140-400) L 07/29/19 00:07 MPV 9.3 fL (9.4-12.4) L 07/28/19 02:16 BUN 32 mg/dL (8-23) H 07/29/19 00:07 Creatinine 1.33 mg/dL (0.70-1.30) H 07/29/19 00:07 Est GFR ( Amer) 49 (> 60) L 07/28/19 02:16 Est GFR (Non-Af Amer) 51 (> 60) L 07/29/19 00:07 BUN/Creatinine Ratio 31 (6-26) H 07/27/19 09:36 Glucose 159 mg/dL (70-105) H 07/27/19 09:36 POC Glucose 106 mg/dL (70-99) H 07/28/19 21:10 Globulin 2.3 g/dL (2.4-3.5) L 07/27/19 09:36
--- NOTE | 2019-07-29 09:51 | Discharge Summary ---
Date of Encounter: 07/29/19 Time of Encounter: 10:00 - Discharge Diagnosis (1) Syncope Priority: Primary Status: Acute Assessment and Plan: 89 year old male with history of type II DM, CAD status post CABG, HFpEF, CVA who presented with his daughter due to confusion and dizziness. By the time i met him, his confusion had resolved. As per the daughter, she was waiting for him for breakfast when she had an noise coming from his bathroom. She checked on him and she found him wobbling front and back. Patient was dizzy and weak in his LEs. He felt himself disoriented. As per the daughter, he recovered from UTI 2 months ago. She noticed decrease oral intake in the past few days. Patient declined chest pain, shortness of breath, palpitation, abdominal pain, nausea/vomiting, urinary or bowel changes. He had no recent fever, chills, night sweats or sick contacts. He was assessed with syncope with wobbly gait likely 2/2 to dehydration. 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 Has EF of 40% ion echo which is chronic. Had ATUL and has been on high doses of lasix at home. He was hydrated gently with IV fluids with improvement in his kidney function and overall clinical status. His does of lasix was reduced on discharge and he is to resume it in 48hrs. Outpatient follow up with primary care Qualifiers: Qualified Code(s): R55 - Syncope and collapse (2) Confusion Priority: Primary Status: Acute (3) Atrial fibrillation Priority: Primary Status: Chronic Qualifiers: Atrial fibrillation type: unspecified Qualified Code(s): I48.91 - Unspec ified atrial fibrillation (4) CAD (coronary artery disease) Priority: Primary Status: Chronic Qualifiers: Coronary Disease-Associated Artery/Lesion type: [place] artery [place] vs. 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 Muller is a 89 year old male - Time Spent with Patient Total time spent providing and/or coordinating discharge services: - Discharge Medications Prescriptions: Continued Pravastatin Sodium [Pravachol] 80 mg PO QPM Omeprazole [PriLOSEC] 20 mg PO DAILY@0630 #30 capsule. Glimepiride [Amaryl] 1 mg PO DAILY Ferrous Sulfate [Iron] 325 mg PO BID Nitroglycerin [Nitrostat] 0.4 mg SL AD PRN PRN Reason: Chest Pain Clopidogrel [Plavix] 75 mg PO QAM Finasteride [Proscar] 5 mg PO DAILY Levothyroxine [Synthroid] 75 mcg PO QAM Metformin HCl 1,000 mg PO BID Vitamin B Complex [B Complex] 1 each PO QPM Carvedilol 12.5 mg PO BID Lisinopril 2.5 mg PO DAILY Silodosin 8 mg PO DAILY Changed Furosemide [Lasix] 40 mg PO DAILY 30 Days #30 Home Medications: Pravastatin Sodium [Pravachol] 80 mg PO QPM 06/23/15 [History] Omeprazole [PriLOSEC] 20 mg PO DAILY@0630 #30 capsule. 09/04/16 [Rx] Clopidogrel [Plavix] 75 mg PO QAM 07/24/18 [History] Ferrous Sulfate [Iron] 325 mg PO BID 07/24/18 [History] Finasteride [Proscar] 5 mg PO DAILY 07/24/18 [History] Glimepiride [Amaryl] 1 mg PO DAILY 07/24/18 [History] Levothyroxine [Synthroid] 75 mcg PO QAM 07/24/18 [History] Metformin HCl 1,000 mg PO BID 07/24/18 [History] Nitroglycerin [Nitrostat] 0.4 mg SL AD PRN 07/24/18 [History] Vitamin B Complex [B Complex] 1 each PO QPM 07/24/18 [History] Carvedilol 12.5 mg PO BID 07/28/19 [History] Lisinopril 2.5 mg PO DAILY 07/28/19 [History] Silodosin 8 mg PO DAILY 07/28/19 [History] Furosemide [Lasix] 40 mg PO DAILY 30 Days #30 09/26/19 [Rx] Allergies/Adverse Reactions: Allergy/AdvReac Type Severity Reaction Status Date / Time No Known Allergies Allergy Verified 07/28/19 20:51 Date of admission: 07/27/19 16:32 Primary care physician: Wander Sandoval MD Consults: 07/27/19 15:34 Consult to Neurology [CONS] Stat Consulting Provider: Neu[facility] Reason for Consult: Disorientation, dizziness, CT angiogram with multiple narrowings. TIA? 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 Call Completed: No 07/28/19 08:58 Consult to Occupational Therapy [CONS] Routine Comment: Evaluate, develop and implement POC Reason for Consult: weakness Does patient have active BEDREST order?: No Is patient medically & hemodynamically stable?: Yes Patient assessed for mobility or mobilized this visit?: No Consult to Physical Therapy [CONS] Routine Comment: Evaluate, develop and implement POC Reason for Consult: weakness Does patient have active BEDREST order?: No Is patient medically & hemodynamically stable?: Yes Patient assessed for mobility or mobilized this visit?: No - Constitutional Vitals: Temp Pulse Resp BP Pulse Ox 97.7 F 75 19 127/71 94 07/29/19 07:12 07/29/19 07:12 07/29/19 07:12 07/29/19 07:12 07/29/19 07:12 Exam: General: Patient is alert, oriented 3. Head: Atraumatic, normal inspection, normocephalic. Eye: EOMI, PERRLA, ENT: Mucous membranes moist. Neck: Normal inspection, Respiratory: No respiratory distress, rhonchi, or wheezes noted. Cardiovascular: Regular rate and regular rhythm, S1 and S2 audible. No murmurs, rubs, or gallops. GI: Soft, nondistended, normal bowel sounds. Extremities:No joint swelling, pedal edema, or tenderness noted. Neurological: Alert, oriented 3, no focal deficits. CN II-XII are intact, strength is 5/5 in upper and lower asymmetry. Sensation are intact, Babinski sign is equivocal bilaterally Psychiatric: normal affect, normal mood. Skin: Dry, intact, warm. Normal color. No rashes. - Patient Status Disposition: Home Health Service Condition: Good - Discharge Instructions Instructions: Atrial Fibrillation (DC), Urinary Tract Infection in Men (DC), Syncope (DC), Peripheral Vascular Disorders (DC), Weakness (GEN), Hypertension (DC), Hyperlipidemia (DC) Follow Up With: Wander Sandoval MD [Primary Care Provider] - 08/02/19 1:00 pm
[2019-07-29 11:22] VITALS: BP 125/74
--- NOTE | 2019-07-29 13:38 | Physician Discharge Referral ---
Home Health/Hosp Referral Info Transfer to: Home Health - Diagnosis (1) Syncope Priority: Primary Status: Acute (2) Confusion Priority: Primary Status: Acute (3) Atrial fibrillation Priority: Primary Status: Chronic (4) CAD (coronary artery disease) Priority: Primary Status: Chronic (5) CHF (congestive heart failure) Priority: Primary Status: Chronic (6) Diabetes Priority: Primary Status: Chronic - Respiratory Orders Smoking Cessation: Smoking cessation has been advised. For more information, call the [place] Tobacco Quit Line at 9-473-IEIJ-NOW. - Diet/Nutrition Diet/Nutrition Orders: Cardiac - Activity Activity Orders: Ambulate - Services Needed Following services are medically necessary services: Nursing, Home Health Aide, Physical Therapy - Transfer Medications Home Medications: Pravastatin Sodium [Pravachol] 80 mg PO QPM 06/23/15 [History] Omeprazole [PriLOSEC] 20 mg PO DAILY@0630 #30 capsule. 09/04/16 [Rx] Clopidogrel [Plavix] 75 mg PO QAM 07/24/18 [History] Ferrous Sulfate [Iron] 325 mg PO BID 07/24/18 [History] Finasteride [Proscar] 5 mg PO DAILY 07/24/18 [History] Glimepiride [Amaryl] 1 mg PO DAILY 07/24/18 [History] Levothyroxine [Synthroid] 75 mcg PO QAM 07/24/18 [History] Metformin HCl 1,000 mg PO BID 07/24/18 [History] Nitroglycerin [Nitrostat] 0.4 mg SL AD PRN 07/24/18 [History] Vitamin B Complex [B Complex] 1 each PO QPM 07/24/18 [History] Carvedilol 12.5 mg PO BID 07/28/19 [History] Lisinopril 2.5 mg PO DAILY 07/28/19 [History] Silodosin 8 mg PO DAILY 07/28/19 [History] Furosemide [Lasix] 40 mg PO DAILY 30 Days #30 07/29/19 [Rx] Allergies/Adverse Reactions: Allergy/AdvReac Type Severity Reaction Status Date / Time No Known Allergies Allergy Verified 07/28/19 20:51 Certification: Further, I certify that my clinical findings support that this patient is homebound (i.e. absences from home require considerable and taxing effort and are for medical reasons or congregation services or infrequently or short duration when for other reasons) because: Homebound Reason: Patient requires assistance of a person or device to safely leave home Attestation: My signature below is to certify that this patient is under my care and that I, or nurse practitioner, or a physician's assistant corporation counsel working with me, has a [id number] encounter with this patient.
== END 2019-07-29 13:55 | disposition home health service (06) ==
LOC: SUATTDRO → EMEROOARM 09:17 → 3BNU 09:17 → SUATTDRO 16:32 → 3BNU 16:42
PROVIDERS: ADMIT Internal Medicine; ATTEND Internal Medicine

== ENCOUNTER 2019-11-27 06:18 | Observation (INO) ==
[2019-11-27] MEDS ORDERED: Aspirin 81 MG TAB.CHEW PO ONE (06:33)
[2019-11-27] MEDS ORDERED: Tdap (Boostrix) Vaccine 0.5 ML SYRINGE IM ONE (06:38)
[2019-11-27 07:40] LABS: Basophils % 0.4 %; Eosinophils # 0.3 K/mcL (0.0-0.6); Eosinophils % 2.8 %; Hematocrit 37.4 % (37.5-50.1); Hemoglobin 12.4 g/dL (12.9-16.9); Immature Granulocytes % 0.3 % (0-4); Lymphocytes # 0.5 K/mcL (0.6-4.6); Lymphocytes % 5.5 %; Mean Corpuscular HGB Conc 33.2 g/dL (31.6-35.5); Mean Corpuscular Hemoglobin 30.5 pg (28.0-33.3); Mean Corpuscular Volume 91.9 fL (83.0-100.0); Mean Platelet Volume 9.6 fL (9.4-12.4); Monocytes # 0.5 K/mcL (0.0-1.3); Monocytes % 4.9 %; Platelet Count 119 K/mcL (140-400); Red Blood Count 4.07 M/mcL (4.19-5.50); Red Cell Distribution Width 13.8 % (11.5-14.5); Segmented Neutrophils % 86.1 %; White Blood Count 9.3 K/mcL (4.3-11.1)
[2019-11-27 07:47] LABS: INR 1.2; Prothrombin Time 13.3 Seconds (9.4-12.1)
[2019-11-27 07:50] LABS: Activated Partial Thrombo Time 34.9 Seconds (26.0-36.0)
[2019-11-27 07:57] LABS: Albumin 4.4 g/dL (3.5-5.7); Albumin/Globulin Ratio 1.8 (1.1-2.2); Bilirubin,Direct 0.2 mg/dL (0.0-0.2); Bilirubin,Indirect 0.4 mg/dL (0.0-1.0); Bilirubin,Total 0.6 mg/dL (0.3-1.0); Globulin 2.4 g/dL (2.4-3.5); Total Protein 6.8 g/dL (6.4-8.9)
[2019-11-27 08:05] LABS: BUN/Creatinine Ratio 31 (6-26); Blood Urea Nitrogen 34 mg/dL (8-23); Calcium 9.8 mg/dL (8.6-10.3); Carbon Dioxide 26 mEq/L (23-29); Chloride 101 mEq/L (98-107); Glucose 165 mg/dL (70-105); Osmolality,Calculated 301 (280-300); Potassium 4.6 mEq/L (3.5-5.1); Sodium 140 mEq/L (136-145); Troponin I < 0.03 ng/mL (< 0.04); eGFR For African Americans > 60 (> 60); eGFR For Non-African Americans > 60 (> 60)
[2019-11-27] MEDS ORDERED: Azithromycin 500 MG in 0.9 % Sodium Chloride 250 ML IVPB ONE (08:23)
[2019-11-27] MEDS ORDERED: cefTRIAXone 1,000 MG in 0.9 % Sodium Chloride Mini Bag 100 ML IVPB ONE (08:23)
[2019-11-27] MEDS ORDERED: Naloxone 0.4 MG/ML INJ IVP PRN (10:43)
[2019-11-27] MEDS ORDERED: Ondansetron 4 MG/2 ML VIAL IVP PRN (10:43)
[2019-11-27] MEDS ORDERED: D5% in Water 1,000 ML IVC PRN (11:30)
[2019-11-27] MEDS ORDERED: *HR* Dextrose 50 % in Water (Syg) 50 ML SYRINGE IVP PRN (11:30)
[2019-11-27] MEDS ORDERED: Dextrose Gel 15 GM/37.5 ML TUBE PO PRN ×2 (11:30)
[2019-11-27 11:58] LABS: Bilirubin,Urine Negative (Negative); Blood,Urine Negative (Negative); Clarity,Urine Clear (Clear); Color,Urine Yellow (Yellow); Glucose,Urine (UA) Normal (Normal); Ketones,Urine Negative (Negative); Leukocyte Esterase,Urine Negative (Negative); Nitrite,Urine Negative (Negative); PH,Urine 5.5 pH Units (5.0-8.0); Protein,Urine Negative (Neg-Trace); Specific Gravity,Urine 1.019 (1.010-1.025); Urobilinogen,Urine Normal (Normal)
[2019-11-27] MEDS: Insulin LISPRO 300 UNITS/3 ML VIAL SQ SCH ×3 (12:36→22:49)
[2019-11-27] MEDS: carvediloL 6.25 MG TABLET PO SCH (16:44)
[2019-11-28 06:43] LABS: Basophils % 0.7 %; Eosinophils # 0.2 K/mcL (0.0-0.6); Eosinophils % 3.8 %; Hematocrit 33.7 % (37.5-50.1); Hemoglobin 11.3 g/dL (12.9-16.9); Immature Granulocytes % 0.2 % (0-4); Lymphocytes # 0.7 K/mcL (0.6-4.6); Lymphocytes % 12.7 %; Mean Corpuscular HGB Conc 33.5 g/dL (31.6-35.5); Mean Corpuscular Hemoglobin 30.8 pg (28.0-33.3); Mean Corpuscular Volume 91.8 fL (83.0-100.0); Mean Platelet Volume 9.8 fL (9.4-12.4); Monocytes # 0.4 K/mcL (0.0-1.3); Monocytes % 6.9 %; Neutrophils # 4.4 K/mcL (1.6-8.9); Platelet Count 113 K/mcL (140-400); Red Blood Count 3.67 M/mcL (4.19-5.50); Red Cell Distribution Width 13.9 % (11.5-14.5); Segmented Neutrophils % 75.7 %; White Blood Count 5.8 K/mcL (4.3-11.1)
[2019-11-28 07:06] LABS: BUN/Creatinine Ratio 30 (6-26); Blood Urea Nitrogen 31 mg/dL (8-23); Calcium 9.5 mg/dL (8.6-10.3); Carbon Dioxide 27 mEq/L (23-29); Chloride 103 mEq/L (98-107); Glucose 134 mg/dL (70-105); Magnesium 1.6 mg/dL (1.6-2.6); Osmolality,Calculated 295 (280-300); Potassium 4.4 mEq/L (3.5-5.1); Sodium 138 mEq/L (136-145); eGFR For African Americans > 60 (> 60); eGFR For Non-African Americans > 60 (> 60)
[2019-11-28] MEDS: Insulin LISPRO 300 UNITS/3 ML VIAL SQ SCH ×3 (08:28→17:00)
[2019-11-28] MEDS: carvediloL 6.25 MG TABLET PO SCH ×2 (08:33→18:04)
[2019-11-28] MEDS: Finasteride 5 MG TABLET PO SCH (08:33)
[2019-11-28] MEDS ORDERED: Furosemide 40 MG TABLET PO SCH (09:00)
[2019-11-28 09:46] LABS: Thyroid Stimulating Hormone 10.253 mcIU/mL (0.340-5.600)
[2019-11-28 10:09] LABS: Folate > 22.3 ng/mL (3.0-16.0); Vitamin B12 582 pg/mL (250-1100); Vitamin D 25 Hydroxy 17 ng/mL (30-80)
[2019-11-28] MEDS ORDERED: 0.9 % Sodium Chloride 500 ML IVC ONE (11:34)
[2019-11-28] MEDS: cefTRIAXone 1,000 MG in Water for inj. (sterile) 10 ML IVP SCH (12:39)
[2019-11-29] MEDS: Insulin LISPRO 300 UNITS/3 ML VIAL SQ SCH ×5 (00:08→21:21)
[2019-11-29 02:09] LABS: Hematocrit 30.8 % (37.5-50.1); Hemoglobin 10.5 g/dL (12.9-16.9); Mean Corpuscular HGB Conc 34.1 g/dL (31.6-35.5); Red Cell Distribution Width 13.9 % (11.5-14.5)
[2019-11-29 02:11] LABS: Basophils % 0.5 %; Eosinophils # 0.2 K/mcL (0.0-0.6); Immature Granulocytes % 0.5 % (0-4); Immature Platelets 3.1 % (1.1-6.1); Lymphocytes # 0.7 K/mcL (0.6-4.6); Mean Corpuscular Hemoglobin 31.1 pg (28.0-33.3); Mean Corpuscular Volume 91.1 fL (83.0-100.0); Monocytes # 0.5 K/mcL (0.0-1.3); Monocytes % 8.4 %; Neutrophils # 4.6 K/mcL (1.6-8.9); Platelet Count 93 K/mcL (140-400); Red Blood Count 3.38 M/mcL (4.19-5.50); Segmented Neutrophils % 76.6 %
[2019-11-29 02:21] LABS: BUN/Creatinine Ratio 31 (6-26); Blood Urea Nitrogen 31 mg/dL (8-23); Carbon Dioxide 26 mEq/L (23-29); Chloride 106 mEq/L (98-107); Glucose 134 mg/dL (70-105); Osmolality,Calculated 297 (280-300); Sodium 139 mEq/L (136-145); eGFR For African Americans > 60 (> 60); eGFR For Non-African Americans > 60 (> 60)
[2019-11-29] MEDS: Finasteride 5 MG TABLET PO SCH (07:52)
[2019-11-29] MEDS: carvediloL 6.25 MG TABLET PO SCH ×2 (07:52→15:50)
[2019-11-29] MEDS: cefTRIAXone 1,000 MG in Water for inj. (sterile) 10 ML IVP SCH (07:52)
[2019-11-29] MEDS: Cholecalciferol (D-3) 1,000 UNIT (25MCG) TABLET PO SCH (07:52)
[2019-11-29 08:12] LABS: Estimated Average Glucose 140 mg/dl
[2019-11-29] MEDS ORDERED: 0.9 % Sodium Chloride 500 ML IVC ONE (08:17)
[2019-11-30 05:12] LABS: Basophils % 0.8 %; Eosinophils # 0.2 K/mcL (0.0-0.6); Eosinophils % 4.4 %; Hematocrit 31.6 % (37.5-50.1); Hemoglobin 10.3 g/dL (12.9-16.9); Immature Granulocytes % 0.2 % (0-4); Lymphocytes # 0.6 K/mcL (0.6-4.6); Lymphocytes % 12.1 %; Mean Corpuscular HGB Conc 32.6 g/dL (31.6-35.5); Mean Corpuscular Hemoglobin 31.3 pg (28.0-33.3); Monocytes # 0.5 K/mcL (0.0-1.3); Monocytes % 8.7 %; Neutrophils # 3.8 K/mcL (1.6-8.9); Platelet Count 101 K/mcL (140-400); Red Blood Count 3.29 M/mcL (4.19-5.50); Red Cell Distribution Width 13.8 % (11.5-14.5); Segmented Neutrophils % 73.8 %; White Blood Count 5.2 K/mcL (4.3-11.1)
[2019-11-30 05:31] LABS: BUN/Creatinine Ratio 30 (6-26); Blood Urea Nitrogen 30 mg/dL (8-23); Carbon Dioxide 25 mEq/L (23-29); Chloride 107 mEq/L (98-107); Glucose 146 mg/dL (70-105); Osmolality,Calculated 295 (280-300); Potassium 3.9 mEq/L (3.5-5.1); Sodium 138 mEq/L (136-145); eGFR For African Americans > 60 (> 60); eGFR For Non-African Americans > 60 (> 60)
[2019-11-30] MEDS: Finasteride 5 MG TABLET PO SCH (08:32)
[2019-11-30] MEDS: carvediloL 6.25 MG TABLET PO SCH ×2 (08:32→18:06)
[2019-11-30] MEDS: Cholecalciferol (D-3) 1,000 UNIT (25MCG) TABLET PO SCH (08:32)
[2019-11-30] MEDS: cefTRIAXone 1,000 MG in Water for inj. (sterile) 10 ML IVP SCH (08:33)
[2019-11-30] MEDS: Insulin LISPRO 300 UNITS/3 ML VIAL SQ SCH ×4 (08:33→21:28)
[2019-12-01] MEDS: Cholecalciferol (D-3) 1,000 UNIT (25MCG) TABLET PO SCH (08:10)
[2019-12-01] MEDS: Finasteride 5 MG TABLET PO SCH (08:10)
[2019-12-01] MEDS: carvediloL 6.25 MG TABLET PO SCH ×2 (08:10→18:12)
[2019-12-01] MEDS: Insulin LISPRO 300 UNITS/3 ML VIAL SQ SCH ×4 (08:10→21:16)
[2019-12-01] MEDS: cefTRIAXone 1,000 MG in Water for inj. (sterile) 10 ML IVP SCH (08:11)
[2019-12-01] MEDS: Sennosides/Docusate Sodium TABLET PO SCH ×2 (12:52→21:16)
[2019-12-02 05:26] LABS: Hematocrit 30.9 % (37.5-50.1); Hemoglobin 10.1 g/dL (12.9-16.9); Mean Corpuscular HGB Conc 32.7 g/dL (31.6-35.5); Mean Corpuscular Hemoglobin 31.4 pg (28.0-33.3); Mean Platelet Volume 9.8 fL (9.4-12.4); Platelet Count 117 K/mcL (140-400); Red Blood Count 3.22 M/mcL (4.19-5.50); Red Cell Distribution Width 13.6 % (11.5-14.5); White Blood Count 5.7 K/mcL (4.3-11.1)
[2019-12-02 05:53] LABS: BUN/Creatinine Ratio 28 (6-26); Blood Urea Nitrogen 26 mg/dL (8-23); Calcium 9.4 mg/dL (8.6-10.3); Carbon Dioxide 24 mEq/L (23-29); Chloride 105 mEq/L (98-107); Glucose 154 mg/dL (70-105); Osmolality,Calculated 298 (280-300); Potassium 4.2 mEq/L (3.5-5.1); Sodium 140 mEq/L (136-145); eGFR For African Americans > 60 (> 60); eGFR For Non-African Americans > 60 (> 60)
[2019-12-02] MEDS: Insulin LISPRO 300 UNITS/3 ML VIAL SQ SCH ×4 (08:45→22:26)
[2019-12-02] MEDS: cefTRIAXone 1,000 MG in Water for inj. (sterile) 10 ML IVP SCH (08:46)
[2019-12-02] MEDS: Sennosides/Docusate Sodium TABLET PO SCH ×2 (08:51→22:26)
[2019-12-02] MEDS: Cholecalciferol (D-3) 1,000 UNIT (25MCG) TABLET PO SCH (08:51)
[2019-12-02] MEDS: carvediloL 6.25 MG TABLET PO SCH ×2 (08:51→17:53)
[2019-12-02] MEDS: Finasteride 5 MG TABLET PO SCH (08:51)
[2019-12-03 04:22] LABS: Hematocrit 31.7 % (37.5-50.1); Hemoglobin 10.2 g/dL (12.9-16.9); Mean Corpuscular HGB Conc 32.2 g/dL (31.6-35.5); Mean Corpuscular Volume 96.4 fL (83.0-100.0); Mean Platelet Volume 9.8 fL (9.4-12.4); Platelet Count 107 K/mcL (140-400); Red Blood Count 3.29 M/mcL (4.19-5.50); Red Cell Distribution Width 14.2 % (11.5-14.5); White Blood Count 4.8 K/mcL (4.3-11.1)
[2019-12-03 04:42] LABS: BUN/Creatinine Ratio 26 (6-26); Blood Urea Nitrogen 24 mg/dL (8-23); Calcium 9.4 mg/dL (8.6-10.3); Carbon Dioxide 26 mEq/L (23-29); Chloride 106 mEq/L (98-107); Glucose 118 mg/dL (70-105); Osmolality,Calculated 297 (280-300); Potassium 4.1 mEq/L (3.5-5.1); Sodium 141 mEq/L (136-145); eGFR For African Americans > 60 (> 60); eGFR For Non-African Americans > 60 (> 60)
[2019-12-03] MEDS: Insulin LISPRO 300 UNITS/3 ML VIAL SQ SCH (07:30)
[2019-12-03 11:02] VITALS: BP 124/56
[2019-12-03] MEDS: Cholecalciferol (D-3) 1,000 UNIT (25MCG) TABLET PO SCH (11:17)
[2019-12-03] MEDS: carvediloL 6.25 MG TABLET PO SCH (11:17)
[2019-12-03] MEDS: Finasteride 5 MG TABLET PO SCH (11:17)
[2019-12-03] MEDS: Sennosides/Docusate Sodium TABLET PO SCH (11:17)
[2019-12-03] MEDS ORDERED: *HR* Metformin 500 MG TABLET PO SCH (17:00)
[2019-12-04] MEDS ORDERED: *HR* Metformin 500 MG TABLET PO SCH (09:00)
== END 2019-12-03 15:27 ==
LOC: 3BNU 06:18 → EMEROOARM 06:18 → SUATTDRO 09:30 → 3BNU 11:21
PROVIDERS: ADMIT Internal Medicine; ATTEND Student in an Organized Health Care Education/Training Program

== ENCOUNTER 2020-05-27 15:59 | Observation (INO) ==
[2020-05-27 16:50] LABS: VBG HCO3 28 mEq/L (21-27); VBG PCO2 47 mmHg (41-51); VBG PH 7.39 pH Units (7.32-7.42); VBG PO2 108 mmHg (25-50)
[2020-05-27 16:52] LABS: Basophils % 0.3 %; Eosinophils # 0.1 K/mcL (0.0-0.6); Eosinophils % 1.3 %; Hematocrit 38.3 % (37.5-50.1); Hemoglobin 12.5 g/dL (12.9-16.9); Immature Granulocytes % 0.4 % (0-4); Lymphocytes # 0.7 K/mcL (0.6-4.6); Lymphocytes % 9.8 %; Mean Corpuscular HGB Conc 32.6 g/dL (31.6-35.5); Mean Corpuscular Hemoglobin 31.7 pg (28.0-33.3); Mean Corpuscular Volume 97.2 fL (83.0-100.0); Mean Platelet Volume 9.6 fL (9.4-12.4); Monocytes # 0.5 K/mcL (0.0-1.3); Monocytes % 7.9 %; Neutrophils # 5.5 K/mcL (1.6-8.9); Platelet Count 154 K/mcL (140-400); Red Blood Count 3.94 M/mcL (4.19-5.50); Red Cell Distribution Width 13.7 % (11.5-14.5); Segmented Neutrophils % 80.3 %; White Blood Count 6.8 K/mcL (4.3-11.1)
[2020-05-27 17:09] LABS: BUN/Creatinine Ratio 26 (6-26); Blood Urea Nitrogen 26 mg/dL (8-23); Carbon Dioxide 25 mEq/L (23-29); Chloride 102 mEq/L (98-107); Glucose 240 mg/dL (70-105); Osmolality,Calculated 303 (280-300); Potassium 3.7 mEq/L (3.5-5.1); Sodium 140 mEq/L (136-145); eGFR For African Americans > 60 (> 60); eGFR For Non-African Americans > 60 (> 60)
[2020-05-27 17:12] LABS: Troponin I 0.04 ng/mL (< 0.04)
[2020-05-27] MEDS ORDERED: Azithromycin 500 MG in D5% in Water 250 ML IVPB ONE (17:42)
[2020-05-27] MEDS ORDERED: cefTRIAXone 1,000 MG in Water for inj. (sterile) 10 ML IVP ONE (17:42)
[2020-05-27] MEDS ORDERED: Ondansetron ODT 4 MG TAB.RAPDIS SL PRN (17:55)
[2020-05-27] MEDS ORDERED: Naloxone 0.4 MG/ML INJ IVP PRN (17:55)
[2020-05-27] MEDS ORDERED: Nitroglycerin 0.4 MG TAB.SUBL SL PRN (18:00)
[2020-05-27] MEDS ORDERED: Finasteride 5 MG TABLET PO SCH (18:00)
[2020-05-27] MEDS ORDERED: Dextrose Gel 15 GM/37.5 ML TUBE PO PRN ×2 (18:00)
[2020-05-27] MEDS ORDERED: *HR* Dextrose 50 % in Water (Vial) 50 ML VIAL IVP PRN (18:00)
[2020-05-27] MEDS ORDERED: D5% in Water 1,000 ML IVC PRN (18:00)
[2020-05-27] MEDS ORDERED: Perflutren Lipid Microsphere 1.3 ML in 0.9 % Sodium Chloride 8.7 ML IVP PRN (18:03)
[2020-05-27 19:29] LABS: Adenovirus Not Detected (Not Detect); Bordetella Pertussis Not Detected (Not Detect); Chlamydophila pneumoniae Not Detected (Not Detect); Coronavirus 229E Not Detected (Not Detect); Coronavirus HKU1 Not Detected (Not Detect); Coronavirus NL63 Not Detected (Not Detect); Coronavirus OC43 Not Detected (Not Detect); Human Metapneumovirus Not Detected (Not Detect); Human Rhinovirus/Enterovirus Not Detected (Not Detect); Influenza A Subtype 2009 H1 Not Detected (Not Detect); Influenza B Not Detected (Not Detect); Mycoplasma pneumoniae Not Detected (Not Detect); Parainfluenza Virus 1 Not Detected (Not Detect); Parainfluenza Virus 2 Not Detected (Not Detect); Parainfluenza Virus 3 Not Detected (Not Detect); Parainfluenza Virus 4 Not Detected (Not Detect); Respiratory Syncytial Virus Not Detected (Not Detect)
[2020-05-27 19:30] LABS: SARS-CoV-2 Not Detected (Not Detect)
[2020-05-27] MEDS ORDERED: Insulin DETEMIR 100 UNIT/ML X5UNITS SQ SCH (21:00)
[2020-05-27] MEDS: carvediloL 6.25 MG TABLET PO SCH (21:58)
[2020-05-27] MEDS: Insulin LISPRO 300 UNITS/3 ML VIAL SQ SCH (22:01)
[2020-05-28] MEDS ORDERED: *HR* Heparin 5,000 UNIT/ML VIAL SQ SCH (06:00)
[2020-05-28 06:31] LABS: Basophils % 0.5 %; Eosinophils # 0.2 K/mcL (0.0-0.6); Eosinophils % 3.2 %; Hematocrit 33.6 % (37.5-50.1); Immature Granulocytes % 0.5 % (0-4); Lymphocytes # 0.8 K/mcL (0.6-4.6); Lymphocytes % 11.9 %; Mean Corpuscular HGB Conc 32.7 g/dL (31.6-35.5); Mean Corpuscular Hemoglobin 31.5 pg (28.0-33.3); Mean Corpuscular Volume 96.3 fL (83.0-100.0); Mean Platelet Volume 9.3 fL (9.4-12.4); Monocytes # 0.5 K/mcL (0.0-1.3); Monocytes % 8.5 %; Neutrophils # 4.8 K/mcL (1.6-8.9); Platelet Count 132 K/mcL (140-400); Red Blood Count 3.49 M/mcL (4.19-5.50); Red Cell Distribution Width 13.5 % (11.5-14.5); Segmented Neutrophils % 75.4 %; White Blood Count 6.3 K/mcL (4.3-11.1)
[2020-05-28 06:32] VITALS: BP 124/69
[2020-05-28 06:52] LABS: BUN/Creatinine Ratio 27 (6-26); Blood Urea Nitrogen 23 mg/dL (8-23); Calcium 9.1 mg/dL (8.6-10.3); Carbon Dioxide 28 mEq/L (23-29); Chloride 104 mEq/L (98-107); Glucose 89 mg/dL (70-105); Magnesium 1.5 mg/dL (1.6-2.6); Osmolality,Calculated 293 (280-300); Potassium 3.1 mEq/L (3.5-5.1); Sodium 140 mEq/L (136-145); eGFR For African Americans > 60 (> 60); eGFR For Non-African Americans > 60 (> 60)
[2020-05-28 07:00] LABS: Troponin I 0.04 ng/mL (< 0.04)
[2020-05-28] MEDS: Insulin LISPRO 300 UNITS/3 ML VIAL SQ SCH ×2 (08:42→12:13)
[2020-05-28] MEDS: carvediloL 6.25 MG TABLET PO SCH (08:50)
[2020-05-28] MEDS ORDERED: Potassium Chloride Elixir 20 MEQ/15 ML UDC PO ONE (08:54)
[2020-05-28] MEDS ORDERED: cefTRIAXone 1,000 MG in Water for inj. (sterile) 10 ML IVP SCH (09:00)
[2020-05-28] MEDS ORDERED: Cholecalciferol (D-3) 1,000 UNIT (25MCG) TABLET PO SCH (09:00)
[2020-05-28] MEDS ORDERED: lisinopriL 5 MG TABLET PO SCH (09:00)
[2020-05-28] MEDS ORDERED: Furosemide 20 MG TABLET PO SCH (09:00)
[2020-05-28] MEDS ORDERED: Azithromycin 500 MG in 0.9 % Sodium Chloride 250 ML IVPB SCH (18:00)
== END 2020-05-28 14:03 | disposition home or self-care (01) ==
LOC: 3BNU 15:59 → EMEROOARM 15:59 → SUATTDRO 20:12 → 3BNU 20:41
PROVIDERS: ADMIT Family Medicine; ATTEND Internal Medicine

== ENCOUNTER 2020-06-03 21:08 | Inpatient (IN) ==
[2020-06-03 21:53] LABS: Basophils % 0.1 %; Eosinophils # 0.2 K/mcL (0.0-0.6); Immature Granulocytes % 0.4 % (0-4); Lymphocytes # 0.4 K/mcL (0.6-4.6); Lymphocytes % 5.5 %; Mean Corpuscular HGB Conc 32.4 g/dL (31.6-35.5); Mean Corpuscular Hemoglobin 32.1 pg (28.0-33.3); Mean Corpuscular Volume 99.1 fL (83.0-100.0); Mean Platelet Volume 9.3 fL (9.4-12.4); Monocytes # 0.6 K/mcL (0.0-1.3); Monocytes % 8.4 %; Neutrophils # 6.3 K/mcL (1.6-8.9); Platelet Count 155 K/mcL (140-400); Red Blood Count 3.43 M/mcL (4.19-5.50); Red Cell Distribution Width 13.5 % (11.5-14.5); Segmented Neutrophils % 82.6 %; White Blood Count 7.6 K/mcL (4.3-11.1)
[2020-06-03 22:01] LABS: INR 1.3; Prothrombin Time 15.2 Seconds (9.4-12.1)
[2020-06-03 22:03] LABS: Activated Partial Thrombo Time 36.9 Seconds (26.0-36.0)
[2020-06-03 22:19] LABS: Alanine Aminotransferase 13 Units/L (7-52); Albumin 3.7 g/dL (3.5-5.7); Albumin/Globulin Ratio 1.5 (1.1-2.2); Alkaline Phosphatase 77 Units/L (34-104); Aspartate Amino Transferase 15 Units/L (13-39); BUN/Creatinine Ratio 22 (6-26); Bilirubin,Direct 0.2 mg/dL (0.0-0.2); Bilirubin,Indirect 0.3 mg/dL (0.0-1.0); Bilirubin,Total 0.5 mg/dL (0.3-1.0); Blood Urea Nitrogen 22 mg/dL (8-23); Calcium 9.5 mg/dL (8.6-10.3); Carbon Dioxide 26 mEq/L (23-29); Chloride 108 mEq/L (98-107); Digoxin < 0.3 ng/mL (0.8-2.0); Globulin 2.4 g/dL (2.4-3.5); Glucose 188 mg/dL (70-105); Lactate Dehydrogenase 122 Units/L (140-271); Magnesium 1.8 mg/dL (1.6-2.6); Osmolality,Calculated 300 (280-300); Phosphorous 3.1 mg/dL (2.7-4.5); Potassium 3.9 mEq/L (3.5-5.1); Sodium 141 mEq/L (136-145); Total Protein 6.1 g/dL (6.4-8.9); Troponin I 0.03 ng/mL (< 0.04); eGFR For African Americans > 60 (> 60); eGFR For Non-African Americans > 60 (> 60)
[2020-06-03 22:36] LABS: Ferritin 266 ng/mL (20-250)
[2020-06-03 22:51] LABS: C-Reactive Protein 35 mg/L (Less than 10)
[2020-06-03 22:55] LABS: Adenovirus Not Detected (Not Detect); Bordetella Pertussis Not Detected (Not Detect); Chlamydophila pneumoniae Not Detected (Not Detect); Coronavirus 229E Not Detected (Not Detect); Coronavirus HKU1 Not Detected (Not Detect); Coronavirus NL63 Not Detected (Not Detect); Coronavirus OC43 Not Detected (Not Detect); Human Metapneumovirus Not Detected (Not Detect); Human Rhinovirus/Enterovirus Not Detected (Not Detect); Influenza A Subtype 2009 H1 Not Detected (Not Detect); Influenza B Not Detected (Not Detect); Mycoplasma pneumoniae Not Detected (Not Detect); Parainfluenza Virus 1 Not Detected (Not Detect); Parainfluenza Virus 2 Not Detected (Not Detect); Parainfluenza Virus 3 Not Detected (Not Detect); Parainfluenza Virus 4 Not Detected (Not Detect); Respiratory Syncytial Virus Not Detected (Not Detect)
[2020-06-03] MEDS ORDERED: levoFLOXacin 750 MG/150 ML 750 MG/150 ML BAG IVPB ONE (23:14)
[2020-06-03 23:50] LABS: ABG Base Excess 1 mEq/L (-2 to 3); ABG HCO3 26 mEq/L (21-27); ABG Oxygen Saturation 97 % (95-98); ABG PCO2 43 mmHg (35-45); ABG PH 7.39 pH Units (7.32-7.45); ABG PO2 87 mmHg (85-104); ABG TCO2 28 mEq/L (20-26)
[2020-06-04 01:03] LABS: Bilirubin,Urine Negative (Negative); Blood,Urine Negative (Negative); Clarity,Urine Clear (Clear); Color,Urine Yellow (Yellow); Glucose,Urine (UA) Normal (Normal); Ketones,Urine Negative (Negative); Leukocyte Esterase,Urine Negative (Negative); Nitrite,Urine Negative (Negative); Protein,Urine Trace mg/dL (Neg-Trace); Specific Gravity,Urine 1.019 (1.010-1.025); Urobilinogen,Urine Normal (Normal)
[2020-06-04] MEDS: Azithromycin 500 MG in 0.9 % Sodium Chloride 250 ML IVPB SCH (03:49)
[2020-06-04] MEDS ORDERED: Dextrose Gel 15 GM/37.5 ML TUBE PO PRN ×2 (07:33)
[2020-06-04] MEDS ORDERED: D5% in Water 1,000 ML IVC PRN (07:33)
[2020-06-04] MEDS ORDERED: *HR* Dextrose 50 % in Water (Vial) 50 ML VIAL IVP PRN (07:33)
[2020-06-04] MEDS: Insulin LISPRO 300 UNITS/3 ML VIAL SQ SCH ×3 (08:58→16:40)
[2020-06-04] MEDS: Piperacillin/Tazobactam 3.375 GM in 0.9 % Sodium Chloride Mini Bag 100 ML IVPB SCH ×3 (09:17→23:20)
[2020-06-04] MEDS ORDERED: Nitroglycerin 0.4 MG TAB.SUBL SL PRN (13:45)
[2020-06-05] MEDS: Insulin LISPRO 300 UNITS/3 ML VIAL SQ SCH ×5 (00:55→20:29)
[2020-06-05 02:03] LABS: Basophils % 0.1 %; Eosinophils # 0.2 K/mcL (0.0-0.6); Eosinophils % 3.3 %; Hematocrit 34.2 % (37.5-50.1); Hemoglobin 11.1 g/dL (12.9-16.9); Immature Granulocytes % 0.4 % (0-4); Lymphocytes # 0.5 K/mcL (0.6-4.6); Lymphocytes % 7.5 %; Mean Corpuscular HGB Conc 32.5 g/dL (31.6-35.5); Mean Corpuscular Hemoglobin 32.4 pg (28.0-33.3); Mean Corpuscular Volume 99.7 fL (83.0-100.0); Mean Platelet Volume 9.3 fL (9.4-12.4); Monocytes # 0.6 K/mcL (0.0-1.3); Monocytes % 8.8 %; Neutrophils # 5.6 K/mcL (1.6-8.9); Platelet Count 135 K/mcL (140-400); Red Blood Count 3.43 M/mcL (4.19-5.50); Red Cell Distribution Width 13.3 % (11.5-14.5); Segmented Neutrophils % 79.9 %; White Blood Count 7.1 K/mcL (4.3-11.1)
[2020-06-05 02:22] LABS: BUN/Creatinine Ratio 22 (6-26); Blood Urea Nitrogen 22 mg/dL (8-23); Calcium 9.5 mg/dL (8.6-10.3); Carbon Dioxide 28 mEq/L (23-29); Chloride 110 mEq/L (98-107); Glucose 125 mg/dL (70-105); Osmolality,Calculated 303 (280-300); Potassium 3.8 mEq/L (3.5-5.1); Sodium 144 mEq/L (136-145); eGFR For African Americans > 60 (> 60); eGFR For Non-African Americans > 60 (> 60)
[2020-06-05] MEDS: Azithromycin 500 MG in 0.9 % Sodium Chloride 250 ML IVPB SCH (03:37)
[2020-06-05] MEDS: Piperacillin/Tazobactam 3.375 GM in 0.9 % Sodium Chloride Mini Bag 100 ML IVPB SCH ×2 (08:11→16:28)
[2020-06-05] MEDS: *HR* Heparin 5,000 UNIT/ML VIAL SQ SCH ×2 (10:02→16:28)
[2020-06-05] MEDS: Finasteride 5 MG TABLET PO SCH (16:29)
[2020-06-05] MEDS: carvediloL 6.25 MG TABLET PO SCH (16:29)
[2020-06-06] MEDS: Piperacillin/Tazobactam 3.375 GM in 0.9 % Sodium Chloride Mini Bag 100 ML IVPB SCH ×3 (00:01→15:48)
[2020-06-06] MEDS: *HR* Heparin 5,000 UNIT/ML VIAL SQ SCH ×3 (00:01→15:48)
[2020-06-06 02:11] LABS: Basophils % 0.3 %; Eosinophils # 0.3 K/mcL (0.0-0.6); Hematocrit 32.4 % (37.5-50.1); Hemoglobin 10.4 g/dL (12.9-16.9); Immature Granulocytes % 0.5 % (0-4); Lymphocytes # 0.9 K/mcL (0.6-4.6); Lymphocytes % 14.7 %; Mean Corpuscular HGB Conc 32.1 g/dL (31.6-35.5); Mean Corpuscular Hemoglobin 31.6 pg (28.0-33.3); Mean Corpuscular Volume 98.5 fL (83.0-100.0); Monocytes # 0.6 K/mcL (0.0-1.3); Monocytes % 10.1 %; Neutrophils # 4.3 K/mcL (1.6-8.9); Platelet Count 142 K/mcL (140-400); Red Blood Count 3.29 M/mcL (4.19-5.50); Red Cell Distribution Width 13.3 % (11.5-14.5); Segmented Neutrophils % 69.4 %; White Blood Count 6.2 K/mcL (4.3-11.1)
[2020-06-06 02:26] LABS: BUN/Creatinine Ratio 20 (6-26); Blood Urea Nitrogen 20 mg/dL (8-23); Calcium 9.2 mg/dL (8.6-10.3); Carbon Dioxide 25 mEq/L (23-29); Chloride 108 mEq/L (98-107); Glucose 113 mg/dL (70-105); Osmolality,Calculated 297 (280-300); Potassium 3.3 mEq/L (3.5-5.1); Sodium 142 mEq/L (136-145); eGFR For African Americans > 60 (> 60); eGFR For Non-African Americans > 60 (> 60)
[2020-06-06] MEDS: Azithromycin 500 MG in 0.9 % Sodium Chloride 250 ML IVPB SCH (04:26)
[2020-06-06] MEDS: Insulin LISPRO 300 UNITS/3 ML VIAL SQ SCH ×4 (08:27→22:21)
[2020-06-06] MEDS: Furosemide 20 MG TABLET PO SCH (09:35)
[2020-06-06] MEDS: carvediloL 6.25 MG TABLET PO SCH ×3 (09:35→23:36)
[2020-06-06] MEDS: lisinopriL 5 MG TABLET PO SCH (09:35)
[2020-06-06] MEDS: Finasteride 5 MG TABLET PO SCH (15:49)
[2020-06-07] MEDS: Piperacillin/Tazobactam 3.375 GM in 0.9 % Sodium Chloride Mini Bag 100 ML IVPB SCH ×4 (00:42→23:47)
[2020-06-07] MEDS: *HR* Heparin 5,000 UNIT/ML VIAL SQ SCH ×3 (00:42→16:22)
[2020-06-07 02:33] LABS: Basophils % 0.5 %; Eosinophils # 0.3 K/mcL (0.0-0.6); Eosinophils % 4.8 %; Hematocrit 32.2 % (37.5-50.1); Hemoglobin 10.6 g/dL (12.9-16.9); Immature Granulocytes % 0.5 % (0-4); Lymphocytes # 0.8 K/mcL (0.6-4.6); Mean Corpuscular HGB Conc 32.9 g/dL (31.6-35.5); Mean Corpuscular Volume 97.3 fL (83.0-100.0); Mean Platelet Volume 9.5 fL (9.4-12.4); Monocytes # 0.5 K/mcL (0.0-1.3); Monocytes % 7.7 %; Neutrophils # 4.4 K/mcL (1.6-8.9); Platelet Count 124 K/mcL (140-400); Red Blood Count 3.31 M/mcL (4.19-5.50); Red Cell Distribution Width 13.1 % (11.5-14.5); Segmented Neutrophils % 72.5 %
[2020-06-07 02:57] LABS: BUN/Creatinine Ratio 17 (6-26); Blood Urea Nitrogen 17 mg/dL (8-23); Calcium 9.2 mg/dL (8.6-10.3); Carbon Dioxide 21 mEq/L (23-29); Chloride 108 mEq/L (98-107); Glucose 104 mg/dL (70-105); Osmolality,Calculated 292 (280-300); Potassium 3.7 mEq/L (3.5-5.1); Sodium 140 mEq/L (136-145); eGFR For African Americans > 60 (> 60); eGFR For Non-African Americans > 60 (> 60)
[2020-06-07] MEDS: Azithromycin 500 MG in 0.9 % Sodium Chloride 250 ML IVPB SCH (03:56)
[2020-06-07] MEDS: carvediloL 6.25 MG TABLET PO SCH ×2 (08:54→16:22)
[2020-06-07] MEDS: Furosemide 20 MG TABLET PO SCH (08:54)
[2020-06-07] MEDS: Insulin LISPRO 300 UNITS/3 ML VIAL SQ SCH ×4 (09:08→19:57)
[2020-06-07] MEDS: lisinopriL 5 MG TABLET PO SCH (09:09)
[2020-06-07] MEDS: Finasteride 5 MG TABLET PO SCH (17:31)
[2020-06-08] MEDS: *HR* Heparin 5,000 UNIT/ML VIAL SQ SCH ×3 (00:44→09:19)
[2020-06-08] MEDS: Insulin LISPRO 300 UNITS/3 ML VIAL SQ SCH ×2 (07:37→12:03)
[2020-06-08] MEDS: lisinopriL 5 MG TABLET PO SCH (09:12)
[2020-06-08] MEDS: carvediloL 6.25 MG TABLET PO SCH (09:12)
[2020-06-08] MEDS: Piperacillin/Tazobactam 3.375 GM in 0.9 % Sodium Chloride Mini Bag 100 ML IVPB SCH (09:12)
[2020-06-08] MEDS: Furosemide 20 MG TABLET PO SCH (09:12)
[2020-06-08 10:29] VITALS: BP 124/77
== END 2020-06-08 16:29 | DRG 193 ==
LOC: 3ANU 21:08 → EMEROOARM 21:08 → OBSVTOIN 06-04 00:13 → SUATTDRO 06-04 00:13 → 3ANU 06-04 01:24
PROVIDERS: ADMIT Student in an Organized Health Care Education/Training Program; ATTEND Internal Medicine